=== PATIENT | male | born 1965 | race Caucasian/White ===

== ENCOUNTER 2019-12-22 08:32 | Emergency (ER) | payer OTHER, SELFPAY ==
--- NOTE | ~2019-12-22 | CT_ITS ---
EXAMINATION: CT abdomen pelvis w con DATE: 12/22/2019 09:33 INDICATION: Abdominal pain and diarrhea. TECHNIQUE: Computed tomography (CT) of the abdomen and pelvis was performed with 100 cc Omnipaque 350 intravenous contrast. The dose-length product was 1610.32 mGy-cm. Automated exposure control and ite rative reconstruction technique were employed. COMPARISON: None. FINDINGS: Lung bases are unremarkable. Heart size normal. No pleural or pericardial effusion. No sign ificant vascular abnormality. No lymphadenopathy. The liver, spleen, pancreas, adrenal glands and kidneys are unremarkable. Gallbladder is present. No abnormal pelvic masses or fluid collections. No bowel obstruction. No free air or free fluid. Mild iván mbar spondylosis. IMPRESSION: 1. No acute abdominal abnormality. Reviewed, dictated and finalized at location A.
[2019-12-22 08:36] VITALS: BP 172/86; PULSE 86; RESP 18; TEMP 36.4; O2SAT 100
--- NOTE | 2019-12-22 08:36 | PC.NURSE ---
Patient to bathroom for urine sample on way to his room.
--- NOTE | 2019-12-22 08:38 | ED.ABDPAIN ---
HPI - Abdominal Pain General Chief Complaint: Abdominal Pain Stated Complaint: stomach is killing me Time Seen by Provider: 12/22/19 08:34 Source: patient Mode of arrival: ambulatory Limitations: no limitations History of Present Illness HPI narrative: Pt is a 54 y/o male who presents to the ED with c/o intermittent lower ABD pain that radiates to his lower back since afternoon (4 days ago). Pt reports nausea and diarrhea, but denies vomiting or a fever. He took Tylenol this morning for pain. Pt states that he was treated for IBS about 22 years ago. MD elicited complaint: abdominal pain Pertinent past history: other (IBS) Onset (ago): day(s) (4) Pain Consistency: intermittent Location: other (lower ABD) Radiation: back (lower) Relieving factors: nothing Associated symptoms: nausea and diarrhea Treatments prior to arrival: other (Tylenol) Related Data Home Medications Medication Instructions Recorded Confirmed blood sugar diagnostic #10 each 10/20/19 blood-glucose meter #1 each 10/20/19 dicyclomine 10 mg capsule 10 mg PO QID 10/20/19 exenatide microspheres 2 mg/0.65 2 mg SUB-Q Q7D 10/20/19 mL subcutaneous pen injector trazodone 50 mg tablet 100 mg PO QPM tablet 10/20/19 Allergies Allergy/AdvReac Type Severity Reaction Status Date / Time No Known Allergies Allergy Mild Unverified 04/05/04 08:49 acetaminophen Allergy Unknown NAUSEA/VOMI Unverified 01/27/09 15:25 TING propoxyphene Allergy Unknown NAUSEA/VOMI Unverified 01/27/09 15:25 TING Review of Systems Review of Systems: All systems reviewed & are unremarkable except as noted in HPI and below Constitutional: Constitutional: Denies fever(s) Gastrointestinal: Gastrointestinal: Reports abdominal pain, Reports diarrhea, Reports nausea and Denies vomiting Musculoskeletal: Musculoskeletal: Reports back pain PMFSH Past Medical History Medical History (Updated 12/22/19 @ 11:46 by Agustin Faith DO) Anxiety Depression Diabetes mellitus High cholesterol HTN (hypertension) IBS (irritable bowel syndrome) Left lateral epicondylitis Trigeminal neuralgia Surgical History Surgical History (Updated 12/22/19 @ 08:45 by Lucia Galloway) History of bilateral carpal tunnel release Hx of tonsillectomy Family History Family History (Updated 03/25/18 @ 16:29 by DOCTOR UNKNOWN) Grandparent Diabetes mellitus Family history of cardiovascular disease Family history of malignant neoplasm of breast in first degree relative Sibling Diabetes mellitus Mother Family history of malignant neoplasm of brain Social History Social History Smoking status: Former smoker Second hand tobacco smoke exposure: No Smoking end date: 10/15/17 Alcohol intake: never Gender identity (if verbalized by the patient): Male Exam Narrative: Exam Narrative: APPEARANCE: No acute distress, nontoxic, resting in bed EYES: EOMI HEENT: Normocephalic, atraumatic, OMM RESPIRATORY: No respiratory distress Clear to auscultation bilaterally with no rhonchi wheezing or rales. CARDIOVASCULAR: Regular rate and rhythm without murmurs rubs or gallops. ABDOMINAL: Obese, soft, nondistended, diffusely tender to palpation, no rebound or guarding Back: No midline thoracic or lumbar tenderness to palpation MUSCULOSKELETAl: Moves all extremities. No clubbing, cyanosis or edema. NEURO: Awake and alert. Following commands, speech normal, no focal deficits SKIN:: Warm, dry. No rashes lesions or abrasions PSYCHIATRIC: Normal affect/mood, Course Course Emergency Course: Patient states that one time he had been on belladonna for his IBS but is been switched to Bentyl. Patient states that they are feeling much better at this time. States abdominal pain has resolved. Repeat abdominal exam shows the patient's abdomen to be soft and nontender. Discussed with patient results of workup and diagnosis. Discussed need for follow
[2019-12-22 08:56] LABS: Basophils Percent Auto 0.4 % (0.2-1.2); Eosinophils Absolute Auto 0.1 K/mm3 (0-0.3); Eosinophils Percent Auto 1.2 % (0-4.4); Hematocrit 41.6 % (42.0-52.0); Hemoglobin 12.7 g/dL (14.0-18.0); Immature Granulocyte Absolute 0.07 K/mm3 (0.00-0.031); Immature Granulocyte Percent A 0.7 % (0-0.5); Lymphocytes Absolute Auto 1.86 K/mm3 (0.9-3.2); Lymphocytes Percent Auto 18.9 % (18.3-44.2); Mean Corpuscular HGB Conc 30.5 g/dl (32-36); Mean Corpuscular Volume 81.9 fl (80-100); Mean Platelet Volume 9.8 fl (7.4-10.4); Monocytes Absolute Auto 0.6 K/mm3 (0.1-0.6); Monocytes Percent Auto 5.6 % (2.6-8.5); Neutrophils Absolute Auto 7.2 K/mm3 (1.3-6.7); Neutrophils Percent Auto 73.2 % (45.5-73.1); Platelet Count Result 266 k/mm3 (150-375); Red Blood Count 5.08 M/mm3 (4.6-6.20); White Blood Count 9.9 K/mm3 (4.5-10.0)
[2019-12-22 09:00] LABS: Add Urine Microscopic? YES; Appearance Urine Clear (Clear); Bilirubin Urine Negative (Negative); Blood Urine Negative (Negative); Color Urine Yellow (Yellow); Glucose Urine UA Negative (Negative); Ketones Urine Negative (Negative); Leukocyte Esterase Ur Negative LEU/UL (Negative); Mucus Urine Heavy /lpf; Nitrate Urine Negative (Negative); Protein Urine 1+ mg/dL (Negative); RBC Urine 0-2 /hpf (0-2); Squamous Epithelial Cell Urine Moderate /hpf (Few); Urobilinogen Urine Negative mg/dL (<2.0); WBC Urine 0-3 /hpf
[2019-12-22 09:10] LABS: Alanine Aminotransferase 29 U/L (4-50); Albumin Level 4.3 g/dL (3.5-5.1); Alkaline Phosphatase 139 U/L (38-126); Aspartate Amino Transferase 22 U/L (17-59); Bilirubin,Total 0.3 mg/dL (0.2-1.3); Blood Urea Nitrogen 9 mg/dL (9-20); Carbon Dioxide 30 mmol/L (22-30); Chloride 99 mmol/L (98-107); Estimated CRCL calculation 169 ml/min; Estimated Glomerular Filt Rate > 60; Glucose 119 mg/dL (75-110); Lipase 69 U/L (23-300); Potassium 4.5 mmol/L (3.4-5.0); Sodium 138 mmol/L (137-145)
[2019-12-22] MEDS: DICYCLOMINE HCL INJ 20 MG/2 ML VIAL IM (10:26)
[2019-12-22 10:30] VITALS: BP 148/78; PULSE 76; RESP 16; O2SAT 98
[2019-12-22] MEDS: BELLADONNA ALK/PHENOB ELIX 10 ML, MAG HYDROX/ALUMINUM HYD/SIMETH 30 ML, LIDOCAINE HCL 2... PO (11:26)
[2019-12-22 12:45] VITALS: BP 167/66; PULSE 73; RESP 16; O2SAT 96
== END 2019-12-22 12:45 | disposition home or self-care (01) ==
PROVIDERS: Emergency Provider Emergency Medicine; PCP Family Medicine
DX: R10.30 Lower abdominal pain, unspecified (principal); F41.9 Anxiety disorder, unspecified; F32.9 Major depressive disorder, single episode, unspecified; K58.9 Irritable bowel syndrome, unspecified; E11.9 Type 2 diabetes mellitus without complications; E78.00 Pure hypercholesterolemia, unspecified; Z79.84 Long term (current) use of oral hypoglycemic drugs
CPT/HCPCS: 36415; 74177; 80053; 81001; 83690; 85025; 96372; 99284; A9270; J0500; Q9967

== ENCOUNTER 2020-07-07 07:42 | Emergency (ER) | payer OTHER, SELFPAY ==
--- NOTE | ~2020-07-07 | CT_ITS ---
EXAMINATION: CT abdomen pelvis w con DATE: 07/07/2020 09:25 INDICATION: Abdominal pain. Vomiting. TECHNIQUE: Computed tomography (CT) of the abdomen and pelvis was performed with 100 mL Omnipaque 350 intravenous contrast. Automated exposure control and iterative reconstruction technique were employe d. The dose-length product was 3175.78 mGy-cm. COMPARISON: CT abdomen and pelvis 12/22/2019 FINDINGS: The visualized portions of the lung bases demonstrate mild atelectasis. No pleural effusion . The heart size is normal. There are coronary artery calcifications. No pericardial effusion. The li ferny and gallbladder are normal. There is mild splenomegaly, likely secondary to obesity. The pancreas and adrenal glands are normal. There are cysts in the kidneys measuring up to 1.8 cm on the left. Th ere are no dilated loops of bowel. The appendix is normal. There are no pathologically enlarged lymph nodes. There is no free intraperitoneal fluid. There is a lipoma in the left iliopsoas muscle. There is severe lumbar spondylosis. IMPRESSION: 1. No etiology for the patient's symptoms. Reviewed, dictated and finalized at location A.
[2020-07-07 08:00] VITALS: BP 160/65; PULSE 82; RESP 16; TEMP 36.1; O2SAT 99
--- NOTE | 2020-07-07 08:18 | ED.ABDPAIN ---
HPI - Abdominal Pain General Chief Complaint: Abdominal Pain Stated Complaint: abd pain Time Seen by Provider: 07/07/20 08:18 Source: patient Mode of arrival: ambulatory Limitations: no limitations History of Present Illness HPI narrative: Patient is a 55-year-old male with a history of irritable bowel syndrome who presents for evaluation of abdominal pain. Pain is constant in nature, cramping and sharp in nature located over the center of the abdomen that awakened him from sleep at 2 in the morning. He denies associated fever, cough or shortness of breath. No chest pain. No ripping or tearing sensation of the pain to the flanks. Patient did not try any pain medication at home. He reports some loose stools, mild amount of mucus and blood present. No dark or tarry stools. Patient follows with Dr. Lozada. Related Data Home Medications Medication Instructions Recorded Confirmed blood sugar diagnostic #10 each 10/20/19 06/17/20 blood-glucose meter #1 each 10/20/19 06/17/20 trazodone 50 mg tablet 100 mg PO QPM tablet 10/20/19 06/17/20 carbamazepine 400 mg PO DAILY 07/07/20 [id number]-dim-HH-lycopen-lutein 1 tablet PO DAILY 07/07/20 [Men 50 Plus Multivitamin] Allergies Allergy/AdvReac Type Severity Reaction Status Date / Time propoxyphene AdvReac Unknown NAUSEA/VOMI Verified 07/07/20 08:22 TING Review of Systems Review of Systems: Narrative: CONSTITUTIONAL: Denies fever, chills, or sweats. CARDIOVASCULAR: Denies chest pain, palpitations, or edema. RESPIRATORY: Denies cough or dyspnea. GASTROINTESTINAL: Reports abdominal pain, loose stools, denies vomiting GENITOURINARY: Denies dysuria or hematuria. SKIN: Denies rash or itching. MUSCULOSKELETAL: Denies back pain, joint pain, or myalgia. NEUROLOGIC: Denies headache, numbness, or weakness. [facility] Past Medical History Medical History Anxiety Colon cancer screening Depression Diabetes mellitus Encounter for wellness examination GERD (gastroesophageal reflux disease) High cholesterol HTN (hypertension) Hyperlipidemia IBS (irritable bowel syndrome) Left lateral epicondylitis Morbid obesity with BMI of 45.0-49.9, adult Primary hypertension Prostate cancer screening Trigeminal neuralgia Surgical History Surgical History History of bilateral carpal tunnel release Hx of tonsillectomy Social History Social History Smoking status: Former smoker (Quit 2 years ago) Second hand tobacco smoke exposure: No Smoking end date: 03/18/18 Alcohol intake: never Gender identity (if verbalized by the patient): Male Exam Narrative: Exam Narrative: GENERAL: Awake, alert, conversant HEAD: Normocephalic, atraumatic. EYES: PERRLA and EOMI. ENT: Nares clear, no rhinorrhea or epistaxis. Mucous membranes moist. NECK: Supple. CHEST: No respiratory distress, breathing even and non labored HEART: Regular rate, sinus rhythm ABDOMEN: Obese, periumbilical abdominal pain, nonrigid, no rebound, no guarding EXTREMITIES: Normal range of motion. No edema. SKIN: Warm, dry, no rash. NEURO:No focal deficits. Alert and oriented x3 Course Vital Signs Vital signs: Vital Signs Temperature 36.1 C L 07/07/20 08:00 Pulse Rate 82 07/07/20 08:00 Respiratory Rate 16 07/07/20 08:00 Blood Pressure 160/65 H 07/07/20 08:00 Pulse Oximetry 99 07/07/20 08:00 Temperature 36.1 C L 07/07/20 08:00 Pulse Rate 82 07/07/20 08:00 Respiratory Rate 16 07/07/20 08:00 Blood Pressure 160/65 H 07/07/20 08:00 Pulse Oximetry 99 07/07/20 08:00 MDM - Abdominal Pain MDM Narrative Medical decision making narrative: Patient's abdomen is soft without significant pain or signs of surgical abdomen on serial exams. Lab and imaging evaluations are reviewed and patient is felt to be a reasonable candidate for outp
[2020-07-07 08:48] LABS: Basophils Absolute Auto 0.1 K/mm3 (0.0-0.1); Basophils Percent Auto 0.5 % (0.2-1.2); Eosinophils Absolute Auto 0.1 K/mm3 (0-0.3); Eosinophils Percent Auto 0.7 % (0-4.4); Hematocrit 40.8 % (42.0-52.0); Immature Granulocyte Absolute 0.15 K/mm3 (0.00-0.031); Immature Granulocyte Percent A 1.2 % (0-0.5); Lymphocytes Absolute Auto 2.38 K/mm3 (0.9-3.2); Lymphocytes Percent Auto 18.4 % (18.3-44.2); Mean Corpuscular HGB Conc 31.9 g/dl (32-36); Mean Corpuscular Volume 78.5 fl (80-100); Mean Platelet Volume 9.5 fl (7.4-10.4); Monocytes Absolute Auto 0.6 K/mm3 (0.1-0.6); Neutrophils Absolute Auto 9.6 K/mm3 (1.3-6.7); Neutrophils Percent Auto 74.2 % (45.5-73.1); Platelet Count Result 348 k/mm3 (150-375); Red Cell Distribution Width 15.6 % (11.5-14.5); White Blood Count 12.9 K/mm3 (4.5-10.0)
[2020-07-07] MEDS: SODIUM CHLORIDE 0.9% IV 1,000 ML 999 ML IV CONT (08:50)
[2020-07-07 08:51] LABS: Add Urine Microscopic? NO; Appearance Urine Clear (Clear); Bilirubin Urine Negative (Negative); Blood Urine Negative (Negative); Color Urine Straw (Yellow); Glucose Urine UA Negative (Negative); Ketones Urine Negative (Negative); Leukocyte Esterase Ur Negative LEU/UL (Negative); Nitrate Urine Negative (Negative); Protein Urine Negative (Negative); Specific Grav Ur 1.011 (1.001-1.035); Urobilinogen Urine Negative mg/dL (<2.0)
[2020-07-07] MEDS: ONDANSETRON INJ 4 MG/2 ML VIAL IV PUSH (08:53)
[2020-07-07] MEDS: MORPHINE SULFATE (*CRX) 4 MG/ML INJ IV PUSH (08:53)
[2020-07-07 09:01] LABS: Alanine Aminotransferase 47 U/L (4-50); Albumin Level 4.3 g/dL (3.5-5.1); Alkaline Phosphatase 137 U/L (38-126); Anion Gap 8 mmol/L (8-16); Aspartate Amino Transferase 25 U/L (17-59); Bilirubin,Total 0.3 mg/dL (0.2-1.3); Blood Urea Nitrogen 11 mg/dL (9-20); Calcium 9.7 mg/dL (8.4-10.2); Carbon Dioxide 30 mmol/L (22-30); Chloride 99 mmol/L (98-107); Estimated CRCL calculation 159 ml/min; Estimated Glomerular Filt Rate > 60; Glucose 137 mg/dL (75-110); Lipase 86 U/L (23-300); Potassium 4.2 mmol/L (3.4-5.0); Sodium 137 mmol/L (137-145)
[2020-07-07] MEDS: BELLADONNA ALK/PHENOB ELIX 10 ML, MAG HYDROX/ALUMINUM HYD/SIMETH 30 ML, LIDOCAINE HCL 2... PO (10:35)
[2020-07-07 10:45] VITALS: BP 167/90; PULSE 70; RESP 16; O2SAT 96
== END 2020-07-07 10:45 | disposition home or self-care (01) ==
PROVIDERS: Emergency Provider Emergency Medicine; PCP Family Medicine
DX: R10.84 Generalized abdominal pain (principal); F41.9 Anxiety disorder, unspecified; F32.9 Major depressive disorder, single episode, unspecified; E11.9 Type 2 diabetes mellitus without complications; K21.9 Gastro-esophageal reflux disease without esophagitis; I10 Essential (primary) hypertension; E78.5 Hyperlipidemia, unspecified
CPT/HCPCS: 36415; 74177; 80053; 81003; 83690; 85025; 96361; 96374; 96375; 99284; A9270; J2270; J2405; J7030; Q9967

== ENCOUNTER 2020-08-31 02:16 | Outpatient (CLI) | payer OTHER, SELFPAY ==
[2020-08-31 19:46] LABS: SARS-CoV-2 RNA PCR Negative
== END 2020-08-31 02:17 | disposition home or self-care (01) ==
LOC: ANHCOVIDDT 02:16
PROVIDERS: PCP Family Medicine; Visit Provider Internal Medicine Gastroenterology
DX: Z01.818 Encounter for other preprocedural examination (principal); Z20.828 Contact with and (suspected) exposure to other viral communicable diseases
CPT/HCPCS: 87635; C9803; U0003

== ENCOUNTER 2020-09-03 00:35 | Day surgery (SDC) | payer OTHER, SELFPAY ==
[2020-08-27 14:58] VITALS: BMI 46.3
[2020-09-03 06:21] VITALS: BP 140/66; PULSE 89; RESP 18; O2SAT 96
[2020-09-03] MEDS: LACTATED RINGERS 1,000 ML 150 ML IV CONT (06:42)
[2020-09-03 06:45] LABS: Glucose Point of Care 138 (65-105)
--- NOTE | 2020-09-03 07:20 | WPDANESEPPF ---
Anes - Initial Pre Proc Eval Procedure: Operation Date: 09/03/20 07:30 Proposed Procedures p Esophagogastroduodenoscopy&Screen Colon - Ryan Barton MD Date/Time: 09/03/20 07:20 Surgeon: Ryan Barton MD Pre Op Diagnosis: neoplasm screening , nausea Patient Data Age: 55 Gender: M Height: 6 ft Weight: 155 kg Last Vital Signs Pulse 89 09/03/20 06:21 Resp 18 09/03/20 06:21 BP 140/66 09/03/20 06:21 Pulse Ox 96 09/03/20 06:21 Allergies Allergy/AdvReac Type Severity Reaction Status Date / Time propoxyphene AdvReac Unknown NAUSEA/VOMI Verified 09/03/20 06:19 TING Home Medications Medication Instructions Recorded Confirmed Type blood sugar diagnostic #10 each 10/20/19 07/08/20 History blood-glucose meter #1 each 10/20/19 07/08/20 History trazodone 50 mg tablet 100 mg PO QPM PRN tablet 10/20/19 08/27/20 History rosuvastatin 40 mg tablet 40 mg PO DAILY #90 tablet 11/06/19 08/27/20 Rx famotidine [Pepcid] 20 mg PO DAILY #14 tablet 12/22/19 08/27/20 Rx dicyclomine 10 mg capsule 10 mg PO QID #360 cap 03/25/20 08/27/20 Rx hydrochlorothiazide 25 mg tablet 25 mg PO DAILY #90 tablet 05/04/20 08/27/20 Rx carbamazepine 400 mg PO DAILY 07/07/20 08/27/20 History fnjscqmx-dvo-RP-lycopen-lutein 1 tablet PO DAILY 07/07/20 08/27/20 History [Men 50 Plus Multivitamin] oxycodone-acetaminophen 1 tablet PO Q6H PRN #14 tablet 07/07/20 08/27/20 Rx valsartan 160 mg tablet 160 mg PO DAILY #90 tablet 07/19/20 08/27/20 Rx exenatide microspheres 2 mg/0.65 2 mg SUB-Q Q7D #4 each 07/26/20 08/27/20 Rx mL subcutaneous pen injector albuterol sulfate 90 mcg/actuation See Rx Instructions .ROUTE 08/06/20 08/27/20 Rx breath activated powder inhaler .COMPLEX #1 ea metformin 500 mg tablet,extended 2,000 mg PO QPM #360 tablet 08/26/20 08/27/20 Rx release 24 hr amlodipine 10 mg tablet 10 mg PO DAILY #90 tablet 08/27/20 08/27/20 Rx Laboratory Tests 09/03/20 06:35 POC Capillary Glucose 138 mg/dl H mg/dl (65-105) Patient hx anesthesia problems: post op nausea/vomiting Family hx anesthesia problems: none PMFSH Past Medical History Medical History Abdominal pain Anxiety Colon cancer screening Depression Diabetes mellitus Encounter for wellness examination GERD (gastroesophageal reflux disease) High cholesterol HTN (hypertension) Hyperlipidemia IBS (irritable bowel syndrome) Left lateral epicondylitis Loose stools Morbid obesity with BMI of 45.0-49.9, adult Nausea Obesity Primary hypertension Prostate cancer screening Trigeminal neuralgia Surgical History Surgical History History of bilateral carpal tunnel release Hx of tonsillectomy Family History Family History Grandparent Diabetes mellitus Family history of cardiovascular disease Family history of malignant neoplasm of breast in first degree relative Sibling Diabetes mellitus Mother Family history of malignant neoplasm of brain Social History Social History Smoking packs per day: 2 Smoking cigarettes per day: 40.0 Years smoked: 20 Smoking pack-years: 40.00 Smoking status: Former smoker Tobacco type: cigarettes Second hand tobacco smoke exposure: No Smoking end date: 03/18/18 Alcohol intake: current Substance use: never Substance use type: does not use Gender identity (if verbalized by the patient): Male Spiritual care concerns: No Anes - Eval Final PreProcedure Day of Procedure 09/03/20 07:20 Patient weight: morbidly obese Heart: regular rate and rhythm Lungs: decreased breath sounds Airway: Mallampati scale class II Neurological: alert and oriented Last oral intake: >/= 8 hours ASA classification: III Emergent: no Anesthetic plan: pro
[2020-09-03] MEDS: ONDANSETRON INJ 4 MG/2 ML VIAL IV PUSH (07:22)
--- NOTE | 2020-09-03 07:32 | PM.HPGS ---
History of Present Illness History of Present Illness Consent: Risks, benefits, and alternatives have been discussed and questions answered. Patient agrees to proceed with procedure. Chief complaint: neoplasm screening , nausea Narrative: Doron Khalil is a 55 year old male with abdominal pain, nausea and loose stools. Tried viberzi but made him constipated Review of Systems Constitutional: Constitutional: Denies headache(s) and Denies weakness Eyes: Eyes: Denies blurry vision ENT: Reports Normal hearing present, Denies headache(s) and Denies neck pain Cardiovascular: Cardiovascular: Denies chest pain and Denies dyspnea Respiratory: Respiratory: Denies dyspnea Gastrointestinal: Gastrointestinal: Reports no additional gastrointestinal complaints Genitourinary: Genitourinary: Denies dysuria Musculoskeletal: Musculoskeletal: Denies neck pain Integumentary/Breasts: Skin/Breast: Denies dry skin Neurologic: Reports Normal hearing present, Denies headache(s) and Denies weakness Psychiatric: Psychiatric: Denies anxiety Endocrine: Endocrine: Denies change in body appearance Hematologic/Lymphatic: Hematologic/Lymphatic: Denies easy bleeding Allergic/Immunologic: Allergic/Immunologic: Denies urticaria PMFSH Past Medical History Medical History Abdominal pain Anxiety Colon cancer screening Depression Diabetes mellitus Encounter for wellness examination GERD (gastroesophageal reflux disease) High cholesterol HTN (hypertension) Hyperlipidemia IBS (irritable bowel syndrome) Left lateral epicondylitis Loose stools Morbid obesity with BMI of 45.0-49.9, adult Nausea Obesity Primary hypertension Prostate cancer screening Trigeminal neuralgia Surgical History Surgical History History of bilateral carpal tunnel release Hx of tonsillectomy Family History Family History Grandparent Diabetes mellitus Family history of cardiovascular disease Family history of malignant neoplasm of breast in first degree relative Sibling Diabetes mellitus Mother Family history of malignant neoplasm of brain Social History Social History Smoking packs per day: 2 Smoking cigarettes per day: 40.0 Years smoked: 20 Smoking pack-years: 40.00 Smoking status: Former smoker Tobacco type: cigarettes Second hand tobacco smoke exposure: No Smoking end date: 03/18/18 Alcohol intake: current Substance use: never Substance use type: does not use Gender identity (if verbalized by the patient): Male Spiritual care concerns: No Meds Home Medications and Allergies Home Medications Medication Instructions Recorded Confirmed Type blood sugar diagnostic #10 each 10/20/19 07/08/20 History blood-glucose meter #1 each 10/20/19 07/08/20 History trazodone 50 mg tablet 100 mg PO QPM PRN tablet 10/20/19 08/27/20 History rosuvastatin 40 mg tablet 40 mg PO DAILY #90 tablet 11/06/19 08/27/20 Rx famotidine [Pepcid] 20 mg PO DAILY #14 tablet 12/22/19 08/27/20 Rx dicyclomine 10 mg capsule 10 mg PO QID #360 cap 03/25/20 08/27/20 Rx hydrochlorothiazide 25 mg tablet 25 mg PO DAILY #90 tablet 05/04/20 08/27/20 Rx carbamazepine 400 mg PO DAILY 07/07/20 08/27/20 History gxsvugab-qmu-NG-lycopen-lutein 1 tablet PO DAILY 07/07/20 08/27/20 History [Men 50 Plus Multivitamin] oxycodone-acetaminophen 1 tablet PO Q6H PRN #14 tablet 07/07/20 08/27/20 Rx valsartan 160 mg tablet 160 mg PO DAILY #90 tablet 07/19/20 08/27/20 Rx exenatide microspheres 2 mg/0.65 2 mg SUB-Q Q7D #4 each 07/26/20 08/27/20 Rx mL subcutaneous pen injector albuterol sulfate 90 mcg/actuation See Rx Instructions .ROUTE 08/06/20 08/27/20 Rx breath activated powder inhaler .COMPLEX #1 ea metformin 500 mg tablet,extended 2,000 mg PO QPM
[2020-09-03] MEDS: BENZOCAINE (*SP) 60 ML SPRAY CAN (HURRICAINE) 1 SPRAY MUCOUS MEM (07:35)
[2020-09-03 08:05] VITALS: BP 92/53; PULSE 80; RESP 19; O2SAT 95
[2020-09-03 08:15] VITALS: BP 108/44; PULSE 80; RESP 18; O2SAT 95
[2020-09-03 08:25] VITALS: BP 112/54; PULSE 79; RESP 12; O2SAT 92
== END 2020-09-03 08:29 | disposition home or self-care (01) ==
PROVIDERS: PCP Family Medicine; Visit Provider Internal Medicine Gastroenterology
PROC: 0DJ08ZZ Inspection of Upper Intestinal Tract, Via Natural or Artificial Opening Endoscopic (ICD-10-PCS; CPT 43235; principal; 2020-09-03 07:30)
DX: Z12.11 Encounter for screening for malignant neoplasm of colon (principal); K21.9 Gastro-esophageal reflux disease without esophagitis; E11.9 Type 2 diabetes mellitus without complications; I10 Essential (primary) hypertension; F41.8 Other specified anxiety disorders; E78.00 Pure hypercholesterolemia, unspecified; E78.5 Hyperlipidemia, unspecified; K58.9 Irritable bowel syndrome, unspecified; G50.0 Trigeminal neuralgia; Z79.84 Long term (current) use of oral hypoglycemic drugs; E66.01 Morbid (severe) obesity due to excess calories; Z68.42 Body mass index [BMI] 45.0-49.9, adult; Z87.891 Personal history of nicotine dependence
CPT/HCPCS: 45380; 43239; 88305; J2405; J2704; J7120

== ENCOUNTER → 2021-04-22 16:12 | Outpatient (CLI) | payer OTHER, SELFPAY ==
--- NOTE | ~2021-04-22 | XR_ITS ---
XR lumbar spine min 4V 04/22/2021 16:36 Indication: Low back pain and radiculopathy Procedure: 5 views lumbar spine Comparison: No prior studies for comparison. Findings: There is mild disc narrowing at L4-5 and L5-S1. There are facet degenerative changes at the se levels. No fracture, subluxation or dislocation. No evidence for spondylolisthesis. Normal anatomi c alignment. Sacral foramen are symmetric. Impression: 1: Moderate lower lumbar spondylosis. Reviewed, dictated and finalized at location A. Impression: 1: Moderate lower lumbar spondylosis.
== END ==
PROVIDERS: PCP Family Medicine; Visit Provider Physician Assistant
DX: M47.816 Spondylosis without myelopathy or radiculopathy, lumbar region (principal)
CPT/HCPCS: 72110

== ENCOUNTER 2021-06-06 07:55 | Emergency (ER) | payer OTHER, SELFPAY ==
[2021-06-06 08:37] VITALS: BP 161/70; PULSE 80; RESP 16; TEMP 36.8; O2SAT 98
--- NOTE | 2021-06-06 09:29 | ED.GENADULT ---
HPI - General Adult General Chief complaint: Eye Problems Stated complaint: Swolled eye lids Time Seen by Provider: 06/06/21 08:02 Source: patient Mode of arrival: ambulatory Limitations: no limitations History of Present Illness HPI narrative: 56-year-old with a history of hypertension, hyperlipidemia, diabetes here with complaints of bilateral eyelid swelling since last 2 days. Patient states he has been outside for past few days. Complains of minor itching. Denies any blurred vision. Onset (ago): day(s) (2) Location: eyes (Eyelids) Severity: mild Quality: other (Itching) Pain Consistency: constant Exacerbating factors: none Associated symptoms: denies other symptoms Related Data Home Medications Medication Instructions Recorded Confirmed blood sugar diagnostic #10 each 10/20/19 12/20/20 vjstbvfe-nzp-AG-lycopen-lutein 1 tablet PO DAILY 07/07/20 12/20/20 [Men 50 Plus Multivitamin] Allergies Allergy/AdvReac Type Severity Reaction Status Date / Time propoxyphene AdvReac Unknown NAUSEA/VOMI Verified 04/15/21 16:01 TING Review of Systems Review of Systems: All systems reviewed & are unremarkable except as noted in HPI and below Constitutional: Constitutional: Reports no additional constitutional complaints Eyes: Eyes: Reports as per HPI Respiratory: Respiratory: Reports no additional respiratory complaints Gastrointestinal: Gastrointestinal: Reports no additional gastrointestinal complaints Musculoskeletal: Musculoskeletal: Reports no additional musculoskeletal complaints Integumentary/Breasts: Skin/Breast: Reports system reviewed and no additional complaints, except as docu Neurologic: Reports system reviewed and no additional complaints, except as documented [facility] Past Medical History Medical History Abdominal pain Anxiety Colon cancer screening Depression Diabetes mellitus Encounter for wellness examination GERD (gastroesophageal reflux disease) High cholesterol HTN (hypertension) Hyperlipidemia IBS (irritable bowel syndrome) Irritable bowel syndrome with diarrhea Left lateral epicondylitis Loose stools Morbid obesity with BMI of 45.0-49.9, adult Nausea Obesity Primary hypertension Prostate cancer screening Trigeminal neuralgia Surgical History Surgical History History of bilateral carpal tunnel release Hx of tonsillectomy Family History Family History Grandparent Diabetes mellitus Family history of cardiovascular disease Family history of malignant neoplasm of breast in first degree relative Sibling Diabetes mellitus Mother Family history of malignant neoplasm of brain Social History Social History (Updated 04/15/21 @ 16:07 by Shanelle Blue [facility]) Smoking packs per day: 2 Smoking cigarettes per day: 40.0 Years smoked: 20 Smoking pack-years: 40.00 Smoking status: Former smoker Tobacco type: cigarettes Second hand tobacco smoke exposure: No Smoking end date: 03/18/18 Alcohol intake: never Substance use: never Substance use type: does not use Gender identity (if verbalized by the patient): Male Spiritual care concerns: No Exam HENMT: Head: normal to inspection Eyes: Conjunctivae: conjunctivae normal Pupils: Equal, round and reactive pupils present Neck: Neck: normal visual inspection Chest: Chest palpation & inspection: normal inspection of the chest Back/Spine/Pelvis: Back: no CVA tenderness Skin: General skin exam: normal color Course Course Emergency Course: Inform patient about his clinical findings at this time it appears to be more allergies, there is no evidence of blepharitis start him on prednisone 10 mg daily for 5 days and advised him to follow-up with his primary doctor. Vital Signs Vital signs: Vital Signs Temperature 36.8 C 06/06/21 08:37 Pul
== END 2021-06-06 10:20 | disposition home or self-care (01) ==
PROVIDERS: Emergency Provider Family Medicine; PCP Family Medicine
DX: H01.003 Unspecified blepharitis right eye, unspecified eyelid (principal); E11.9 Type 2 diabetes mellitus without complications; K21.9 Gastro-esophageal reflux disease without esophagitis; I10 Essential (primary) hypertension; K58.9 Irritable bowel syndrome, unspecified; E78.5 Hyperlipidemia, unspecified; E66.01 Morbid (severe) obesity due to excess calories; Z68.41 Body mass index [BMI] 40.0-44.9, adult; Z87.891 Personal history of nicotine dependence; Z79.84 Long term (current) use of oral hypoglycemic drugs
CPT/HCPCS: 99283

== ENCOUNTER 2022-08-23 12:55 | Emergency (ER) | payer OTHER, BC, SELFPAY ==
--- NOTE | ~2022-08-23 | CT_ITS ---
EXAMINATION: CT soft tissue neck w con DATE: 08/23/2022 17:24 INDICATION: Salivary stone. TECHNIQUE: Computed tomography (CT) of the neck was performed with 75 mL Omnipaque-350 intravenous co ntrast. The dose-length product was 671.11 mGy-cm. COMPARISON: None FINDINGS: The thyroid gland is unremarkable. The submandibular and parotid glands are symmetric, without fatt y atrophy. Several right-sided sublingual (submandibular duct) calcifications, measuring up to 9 x 12 cm, with mild soft tissue asymmetry and mild stranding in the sublingual fat planes. There is no cer vical lymphadenopathy. There are no masses identified. The superior mediastinum is unremarkable. The airway is unremarkable. Parapharyngeal and pre-glottic fat planes are preserved. Mild arch and carotid bifurcation atherosclerotic plaques. The orbits are unremarkable. Retention cyst or po lyp in the right maxillary sinus, otherwise the remaining aerated spaces are clear. Dependent atele ctasis and motion artifact in the lungs. There is mild cervical spondylosis. IMPRESSION: Large right submandibular sialoliths, with CT findings suggestive of mild right sialadenitis. Reviewed, dictated and finalized at location K. [employer]
[2022-08-23 13:37] VITALS: BP 143/70; PULSE 81; RESP 14; TEMP 37.1; O2SAT 97
--- NOTE | 2022-08-23 16:12 | ED.GENADULT ---
HPI - General Adult General Chief complaint: Unspecified Stated complaint: salivary duct stone pain Time Seen by Provider: 08/23/22 15:31 History of Present Illness HPI narrative: 57-year-old male history of salivary gland stones presents to the emergency room complaining of a obstructed salivary gland stone on the right side. Patient states he was seen that in the ENT yesterday and was told that he would need to have his salivary gland surgically removed. Was also encouraged to come to the emergency room to have a CT scan. Patient is requesting to have his salivary gland surgically removed today. Related Data Home Medications Medication Instructions Recorded Confirmed vvptsfyy-etg-qmpja acid 300 1 tablet PO DAILY 07/07/20 08/14/22 mcg-lycopene 600 mcg-lutein 300 mcg tablet (Men 50 Plus Multivitamin) ferrous sulfate 325 mg (65 mg 325 mg PO DAILY 10/12/21 08/14/22 iron) tablet (FeroSul) tizanidine 4 mg capsule 4 mg PO QHS PRN 04/21/22 08/14/22 Allergies Allergy/AdvReac Type Severity Reaction Status Date / Time propoxyphene AdvReac Unknown NAUSEA/VOMI Verified 08/23/22 15:29 TING Review of Systems Review of Systems: CONSTITUTIONAL: Denies fever, chills, or sweats. EYES: Denies visual changes, redness, or discharge. ENT: Reports mouth pain CARDIOVASCULAR: Denies chest pain, palpitations, or edema. RESPIRATORY: Denies cough or dyspnea. GASTROINTESTINAL: Denies abdominal pain, nausea, vomiting, or diarrhea. GENITOURINARY: Denies dysuria or hematuria. SKIN: Denies rash or itching. MUSCULOSKELETAL: Denies back pain, joint pain, or myalgia. NEUROLOGIC: Denies headache, numbness, dizziness, or weakness. PSYCHIATRIC: Denies anxiety or depression. [facility] Past Medical History Medical History Abdominal pain Anxiety Colon cancer screening Depression Diabetes mellitus Edema Encounter for wellness examination GERD (gastroesophageal reflux disease) High cholesterol HTN (hypertension) Hyperlipidemia IBS (irritable bowel syndrome) Irritable bowel syndrome with diarrhea Left lateral epicondylitis Loose stools Morbid obesity with BMI of 45.0-49.9, adult Nausea Obesity Primary hypertension Prostate cancer screening Salivary duct calculi Trigeminal neuralgia Surgical History Surgical History History of bilateral carpal tunnel release Hx of tonsillectomy Family History Family History Grandparent Diabetes mellitus Family history of cardiovascular disease Family history of malignant neoplasm of breast in first degree relative Sibling Diabetes mellitus Mother Family history of malignant neoplasm of brain Social History Social History Smoking packs per day: 2 Smoking cigarettes per day: 40.0 Years smoked: 20 Smoking pack-years: 40.00 Smoking status: Former smoker Tobacco type: cigarettes Second hand tobacco smoke exposure: No Smoking end date: 03/18/18 Alcohol intake: never Substance use: current Other substance usage details: CBD gummies PRN for pain Lack of Transportation: No Lack of Food: Never True Current Housing: I Have Housing Concerned About Future Housing: No Difficulty Paying Gas/Electric Bills: No Difficulty Paying for Meds: No Currently Unemployed: No Difficulty w/ Childcare or Family Care: No Gender identity (if verbalized by the patient): Male Spiritual care concerns: No Agree to blood products: Yes Exam Narrative: GENERAL: Well-appearing, well-nourished, no physical limitations, and in no acute distress. HEAD: Normocephalic, atraumatic. EYES: Conjunctivae normal, PERRLA and EOMI. ENT: Large submandibular salivary gland on the right with scant amount of purulent material noted NECK: Supple. No adenopathy or masses
[2022-08-23] MEDS: SODIUM CHLORIDE 0.9% IV 1,000 ML 999 ML IV CONT (16:32)
[2022-08-23 16:52] LABS: Anion Gap 13 mmol/L (8-16); Blood Urea Nitrogen 12 mg/dL (9-20); Calcium 8.6 mg/dL (8.4-10.2); Carbon Dioxide 30 mmol/L (22-30); Chloride 99 mmol/L (98-107); Estimated CRCL calculation 149 ml/min; Estimated Glomerular Filt Rate > 60; Glucose 109 mg/dL (65-110); Potassium 4.4 mmol/L (3.4-5.0); Sodium 142 mmol/L (137-145)
== END 2022-08-23 18:03 | disposition home or self-care (01) ==
PROVIDERS: Emergency Provider Nurse Practitioner Family; PCP Family Medicine
DX: K11.20 Sialoadenitis, unspecified (principal); E11.9 Type 2 diabetes mellitus without complications; K21.9 Gastro-esophageal reflux disease without esophagitis; I10 Essential (primary) hypertension; E78.5 Hyperlipidemia, unspecified; K58.0 Irritable bowel syndrome with diarrhea; E66.01 Morbid (severe) obesity due to excess calories; Z68.42 Body mass index [BMI] 45.0-49.9, adult; Z87.891 Personal history of nicotine dependence
CPT/HCPCS: 36415; 70491; 80048; 96360; 99284; J7030; Q9967

== ENCOUNTER 2022-10-23 09:43 | Outpatient (CLI) | payer OTHER, BC, SELFPAY ==
--- NOTE | ~2022-10-23 | XR_ITS ---
EXAMINATION: XR hand LT min 3V INDICATION: Left hand pain TECHNIQUE: Three views of left hand are obtained. COMPARISON: None available FINDINGS: No fracture, dislocation, or subluxation. The bones and soft tissues are normal. There is m ild osteoarthritis of multiple interphalangeal joints, at the first metacarpophalangeal joint, and at the first carpometacarpal joint. IMPRESSION: 1. Mild polyarticular osteoarthritis. Reviewed, dictated and finalized at location B. [employer]
--- NOTE | ~2022-10-23 | XR_ITS ---
EXAMINATION: XR hand RT min 3V INDICATION: Right hand pain TECHNIQUE: Three views of the right hand are obtained. COMPARISON: None available FINDINGS: No fracture, dislocation, or subluxation. The bones and soft tissues are normal. There is m ild osteoarthritis of multiple interphalangeal joints, at the first metacarpophalangeal joint, and at the first carpometacarpal joint. IMPRESSION: 1. Mild polyarticular osteoarthritis. Reviewed, dictated and finalized at location B. [employer]
== END 2022-10-23 09:44 | disposition home or self-care (01) ==
PROVIDERS: PCP Family Medicine; Visit Provider Physician Assistant
DX: M19.041 Primary osteoarthritis, right hand (principal); M19.042 Primary osteoarthritis, left hand
CPT/HCPCS: 73130

== ENCOUNTER 2023-02-22 10:01 | Observation (INO) | payer OTHER, BC, SELFPAY ==
[2023-02-22] VITALS (49 sets, daily range): BP systolic 127–153; BP diastolic 56–83; PULSE 62–90; RESP 12–23; TEMP 36.1–36.8; O2SAT 92–98; BMI 43.4
--- NOTE | ~2023-02-22 | XR_ITS ---
XR chest 1V portable 02/22/2023 10:30 Indication: Chest pain. Hypertension. Diabetes. History of smoking. Procedure: AP portable chest Comparison: 11/15/2006 Findings: Borderline heart size. Mild interstitial edema. No pleural effusion or pneumothorax. Impression: 1: Mild interstitial edema. Atypical pneumonia less favored. Reviewed, dictated and finalized at location L. Impression: 1: Mild interstitial edema. Atypical pneumonia less favored.
--- NOTE | ~2023-02-22 | NM_ITS ---
EXAMINATION: NM stress w perf spect multi DATE: 02/23/2023 11:56 INDICATION: Chest pain. TECHNIQUE: Rest images were obtained following intravenous administration of 10.1 mCi Tc99m tetrofosm in (Myoview). The patient performed an exercise activity. At peak exercise, 31.2 mCi Tc99m tetrofosmi n (Myoview) was administered intravenously, and stress images were obtained. Data was reconstructed i nto short axis and horizontal and vertical long axis SPECT images. Gated SPECT images were also obtai sylvia. COMPARISON: CT abdomen and pelvis 07/07/2020 FINDINGS: There is no definite reversible or fixed perfusion abnormality to suggest ischemia or infar ction. There is no segmental wall motion abnormality. Left ventricular ejection fraction measures > 70%. IMPRESSION: 1. No definite ischemia or infarct. 2. Normal left ventricular ejection fraction measuring >70%. Reviewed, dictated and finalized at location E.
--- NOTE | ~2023-02-22 | US_ITS ---
EXAMINATION: US abdomen limited DATE: 02/22/2023 16:04 INDICATION: Chest pain. TECHNIQUE: Multiple grayscale and Doppler ultrasound images of the abdomen were obtained. COMPARISON: CT abdomen and pelvis 07/07/2020 FINDINGS: The visualized portions of the head and body of the pancreas are normal. There is diffuse h epatic steatosis. There is normal flow in main portal vein. The gallbladder is distended. No gallston es or gallbladder wall thickening. There is no sonographic Gibson sign. The common duct is normal and measures 4 mm. IMPRESSION: 1. Diffuse hepatic steatosis. 2. Gallbladder distention, which may be secondary to fasting. Reviewed, dictated and finalized at location E.
--- NOTE | 2023-02-22 10:02 | ECG_ITS ---
Measurements Intervals [place] Rate: 75 P: 59 SC: 189 QRS: 18 QRSD: 89 T: 62 QT: 367 QTc: 412 Interpretive Statements SINUS RHYTHM BASELINE ARTIFACT- I, III, AVR, AVL NORMAL ECG NO PREVIOUS ECG AVAILABLE FOR COMPARISON Electronically Signed On 02-22-2023 11:18:48 CDT by Benitez Hinton D.O.
--- NOTE | 2023-02-22 10:18 | ED.CHESTPAIN ---
HPI - Chest Pain General Chief Complaint: Chest Pain <Josi Leyva PA-C - Last Filed: 02/22/23 16:42> Stated Complaint: chest pain <Josi Leyva PA-C - Last Filed: 02/22/23 16:42> Time Seen by Provider: 02/22/23 10:04 <Josi Leyva PA-C - Last Filed: 02/22/23 16:42> Source: patient <BRANDAN Torres Last Filed: 02/22/23 16:42> Mode of arrival: EMS <BRANDAN Torres Last Filed: 02/22/23 16:42> Limitations: no limitations <Josi Leyva PA-C - Last Filed: 02/22/23 16:42> History of Present Illness HPI narrative: Patient is a 57-year-old male, with PMH of morbid obesity, DM, HTN, HLD, who presents to the ED via EMS with report of chest pain. Patient reports he was sitting at work this morning when he suddenly developed pain in his midsternal chest, radiating through to his back. Pain began around 7:30 AM and has been constant since then. EMS was then called. Patient was given 324 mg nitro spray en route to the ED. He did report slight improvement of his pain with nitro. Patient does mention he has been under increased stress with work recently. Patient reports having a headache after receiving NTG, denies any SOB, N/V, abdominal pain, BLE pain or swelling, vision changes, dizziness, lightheadedness, weakness, numbness, fevers, cough/cold sx's. <Josi Leyva PA-C - Last Filed: 02/22/23 16:42> Related Data Home Medications: Home Medications Medication Instructions Recorded Confirmed dxkqvkmx-qau-leqfq acid 300 1 tablet PO DAILY 07/07/20 08/14/22 mcg-lycopene 600 mcg-lutein 300 mcg tablet (Men 50 Plus Multivitamin) ferrous sulfate 325 mg (65 mg 325 mg PO DAILY 10/12/21 08/14/22 iron) tablet (FeroSul) tizanidine 4 mg capsule 4 mg PO QHS PRN 04/21/22 08/14/22 <Josi Leyva PA-C - Last Filed: 02/22/23 16:42> Allergies/Adverse Reactions: Allergies Allergy/AdvReac Type Severity Reaction Status Date / Time propoxyphene AdvReac Unknown NAUSEA/VOMI Verified 10/23/22 08:52 TING <Josi Leyva PA-C - Last Filed: 02/22/23 16:42> Review of Systems Review of Systems: CONSTITUTIONAL: Denies fever, chills, or sweats. EYES: Denies visual changes. ENT: Denies rhinorrhea, congestion, sore throat. CARDIOVASCULAR: See HPI. RESPIRATORY: Denies cough or dyspnea. GASTROINTESTINAL: Denies abdominal pain, nausea, vomiting. MUSCULOSKELETAL: Denies back pain, joint pain, or myalgia. NEUROLOGIC: See HPI. <Josi Leyva PA-C - Last Filed: 02/22/23 16:42> All systems reviewed & are unremarkable except as noted in HPI and below <Josi Leyva PA-C - Last Filed: 02/22/23 16:42> [facility] Past Medical History Medical History: Medical History Abdominal pain Anxiety Colon cancer screening Depression Diabetes mellitus Edema Encounter for wellness examination GERD (gastroesophageal reflux disease) High cholesterol HTN (hypertension) Hyperlipidemia IBS (irritable bowel syndrome) Irritable bowel syndrome with diarrhea Left lateral epicondylitis Loose stools Morbid obesity with BMI of 45.0-49.9, adult Nausea Obesity Primary hypertension Prostate cancer screening Salivary duct calculi Salivary gland stone Trigeminal neuralgia <Josi Leyva PA-C - Last Filed: 02/22/23 16:42> Surgical History Surgical History: Surgical History H/O carpal tunnel repair H/O colonoscopy History of bilateral carpal tunnel release History of removal of pigmented skin lesion Hx of tonsillectomy S/P cubital tunnel release <Josi Leyva PA-C - Last Filed: 02/22/23 16:42> Family History Family History: Family History Grandparent Diabetes mellitus Family history of cardiovascular dis
[2023-02-22 10:24] LABS: Basophils Percent Auto 0.4 % (0.2-1.2); Eosinophils Absolute Auto 0.1 K/mm3 (0-0.3); Eosinophils Percent Auto 1.2 % (0-4.4); Hematocrit 41.7 % (42.0-52.0); Hemoglobin 13.4 g/dL (14.0-18.0); Immature Granulocyte Absolute 0.03 K/mm3 (0.00-0.031); Immature Granulocyte Percent A 0.3 % (0-0.5); Lymphocytes Absolute Auto 1.88 K/mm3 (0.9-3.2); Lymphocytes Percent Auto 18.8 % (18.3-44.2); Mean Corpuscular HGB Conc 32.1 g/dl (32-36); Mean Corpuscular Hemoglobin 26.8 pg (26-34); Mean Corpuscular Volume 83.4 fl (80-100); Mean Platelet Volume 10.3 fl (7.4-10.4); Monocytes Absolute Auto 0.8 K/mm3 (0.1-0.6); Monocytes Percent Auto 7.7 % (2.6-8.5); Neutrophils Absolute Auto 7.2 K/mm3 (1.3-6.7); Neutrophils Percent Auto 71.6 % (45.5-73.1); Platelet Count Result 232 k/mm3 (150-375); Red Cell Distribution Width 15.3 % (11.5-14.5)
[2023-02-22 10:30] LABS: Alanine Aminotransferase 36 U/L (6-50); Albumin Level 4.4 g/dL (3.5-5.1); Alkaline Phosphatase 97 U/L (38-126); Anion Gap 7 mmol/L (8-16); Aspartate Amino Transferase 24 U/L (17-59); Bilirubin,Total 0.4 mg/dL (0.2-1.3); Blood Urea Nitrogen 15 mg/dL (9-20); Carbon Dioxide 29 mmol/L (22-30); Chloride 100 mmol/L (98-107); Estimated CRCL calculation 172 ml/min; Estimated Glomerular Filt Rate > 60; Glucose 117 mg/dL (65-110); Lipase 83 U/L (23-300); Potassium 4.5 mmol/L (3.4-5.0); Sodium 136 mmol/L (137-145)
[2023-02-22 10:40] LABS: Prothrombin Time 13.2 Seconds (11.1-14.7)
[2023-02-22 10:41] LABS: Partial Thromboplastin Time 24.1 SECONDS (22.3-36.8)
[2023-02-22 10:42] LABS: Troponin I < 0.012 ng/mL (0.000-0.034)
[2023-02-22] MEDS: NITROGLYCERIN SL 0.4 MG TABLET SUBLINGUAL (10:45)
[2023-02-22] MEDS: ACETAMINOPHEN 500 MG TABLET 1000 MG PO (10:50)
[2023-02-22 11:08] LABS: NT Pro B Type Natriuretic Pept < 20 pg/mL (19.9-100)
--- NOTE | 2023-02-22 12:37 | PM.IMHP ---
H&P: HPI History of Present Illness Date/Time: 02/22/23 12:37 Chief Complaint: chest pain Narrative: This is a 57-year-old male patient who has a history of hypertension, hyperlipidemia and diabetes. He developed some mid chest pain that radiated between his shoulders today while he was sitting at work. 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 The patient has no prior history of having any cardiac disease. He denied any diaphoresis And it did not radiate down his arm or up into his neck. The pain started around 730 this morning midsternal and had been constant. He does have increased stress at work lately. He has a history of GERD but the he stated this was different from GERD. He reported that he had headache as well. He denied any shortness of breath or any nausea vomiting or abdominal pain. He denies any increase in weight or swelling. No visual changes dizziness or weakness. No fever chills or cough. He was given nitroglycerin and aspirin EN route. His pain is now subsided. EKG is sinus rhythm normal EKG. His H&H is 13.4 and 41.7. D-dimer slightly high at 0.50. Sodium slightly low at 136. Blood sugars 117. Troponins nonreactive x2. Chest x-ray was read as mild interstitial edema atypical pneumonia less favored. He was given nitroglycerin here and Tylenol. The patient is being admitted to observation status on the date of service of 02/22/2023. Review of Systems Review of Systems: All systems reviewed & are unremarkable except as noted in HPI and below Constitutional: Constitutional: Reports as per HPI and Reports no additional constitutional complaints Eyes: Eyes: Reports as per HPI and Reports no additional eye complaints ENT: Reports system reviewed and no additional complaints, except as documented and Reports Normal hearing present Cardiovascular: Cardiovascular: Reports no additional cardiovascular complaints Respiratory: Respiratory: Reports no additional respiratory complaints and Reports no additional respiratory complaints Gastrointestinal: Gastrointestinal: Reports as per HPI and Reports no additional gastrointestinal complaints Musculoskeletal: Musculoskeletal: Reports no additional musculoskeletal complaints Integumentary/Breasts: Skin/Breast: Reports system reviewed and no additional complaints, except as docu and Reports as per HPI Neurologic: Reports system reviewed and no additional complaints, except as documented, Reports as per HPI and Reports Normal hearing present Psychiatric: Psychiatric: Reports no additional psychiatric complaints and Reports as per HPI Endocrine: Endocrine: Reports no additional endocrine complaints Hematologic/Lymphatic: Hematologic/Lymphatic: Reports no additional hematologic/lymphatic complaints Allergic/Immunologic: Allergic/Immunologic: Reports no additional allergic/immunologic complaints PMFSH Past Medical History Medical History Abdominal pain Anxiety Colon cancer screening Depression Diabetes mellitus Edema Encounter for wellness examination GERD (gastroesophageal reflux disease) High cholesterol HTN (hypertension) Hyperlipidemia IBS (irritable bowel syndrome) Irritable bowel syndrome with diarrhea Left lateral epicondylitis Loose stools Morbid obesity with BMI of 45.0-49.9, adult Nausea Obesity Primary hypertension Prostate cancer screening Salivary duct calculi Salivary gland stone Trigeminal neuralgia Surgical History Surgical History H/O carpal tunnel repair H/O colonoscopy History of bilateral carpal tunnel release History of removal of pigmented skin lesion Hx of tonsillectomy S/P cubital tunnel release Family History Family History Grandparent Diabetes mellitus Family history of cardiovascular disease Family history of malignant n
[2023-02-22 13:49] LABS: Troponin I < 0.012 ng/mL (0.000-0.034)
--- NOTE | 2023-02-22 17:00 | PC.NURSE ---
Pt voicing frustrations with how long it is taking to get an admission room as well as to get stress test done. Pt states he is very uncomfortable on the stretcher. RN apologized for the wait, as there are no rooms available at the time. Pt educated on the importance of admission to expedite his stress test and echo. Pt reports he is wanting to eat, and does not want to stay any longer if he is not allowed to eat. RN spoke with ADMISSIONS CLINICIAN Dwayne, since it is 1700 and stress test will not be done today, patient okay to eat a heart healthy diet and will be NPO at midnight. This order was read-back. Pt updated and provided a beverage, pt wanting his to get food for him. Educated on heart healthy diet. RN also got patient a recliner in his room due to discomfort of the stretcher/upon patient request. Awaiting admission.
[2023-02-22 17:06] LABS: Troponin I < 0.012 ng/mL (0.000-0.034)
--- NOTE | 2023-02-22 19:12 | PC.NURSE ---
RN went to check pt's blood sugar, pt reported that he already ate dinner and did not want it checked right now. Pt reports he is compliant with his home regimen. He takes metformin at night, and checks his blood sugar once per day in the morning. Does not want insulin, as his regimen works for him. Pt told RN that he takes all of his meds in the evening. RN verified his home list in his chart. RN called IRMA Rice and informed her of his night time medication routine at this time. States she will be putting in his home medications for this evening. Pt updated, at bedside.
--- NOTE | 2023-02-22 20:34 | ADMGEN ---
This patient, Doron Khalil, was admitted to IMU Room 206-02. Patient/family oriented to hospital policies and general routines including ID bracelet, bed and alarms, visiting hours, pain management, procedures, bathroom and other care routines, personal items, smoking policy, room service/diet, and visiting hours. Information on how to activate the Rapid Response Team has been discussed. Patient/Family are encouraged to report perceived risks to care and to ask questions if they do not understand what they are told or what they should do.
[2023-02-22 20:56] LABS: Glucose Point of Care 137 mg/dl (65-105)
[2023-02-22] MEDS: VALSARTAN 160 MG TABLET PO (22:54)
[2023-02-22] MEDS: OPTI-GEN TAB 1 TABLET PO (22:54)
[2023-02-22] MEDS: metFORMIN HCL XR 500 MG TAB.SR.24H 2000 MG PO (22:54)
[2023-02-22] MEDS: ROSUVASTATIN 10 MG TABLET 40 MG PO (22:55)
[2023-02-22] MEDS: FERROUS SULFATE 324 MG TABLET PO (22:56)
[2023-02-22] MEDS: carBAMazepine 200 MG TABLET 400 MG PO (22:57)
[2023-02-22] MEDS: amLODIPine BESYLATE 5 MG TABLET 10 MG PO (22:57)
[2023-02-22] MEDS: FAMOTIDINE 20 MG/2 ML VIAL IV PUSH (22:58)
[2023-02-22] MEDS: DICYCLOMINE HCL 10 MG CAPSULE PO (22:58)
[2023-02-22] MEDS: traZODone HCL 50 MG TABLET 100 MG PO (22:59)
[2023-02-23] VITALS (8 sets, daily range): BP systolic 117–131; BP diastolic 56–63; PULSE 59–92; RESP 18–22; TEMP 35.8–36.4; O2SAT 93–96
--- NOTE | 2023-02-23 | EST_ITS ---
Patient Info Name: Doron Khalil Age: 57 years : 1965 Gender: Male Ht: 71 in Wt: 314 lbs BSA: 2.74 m2 HR: 77 bpm BP: 134 / 54 mmHg Heart Rhythm: Sinus Rhythm Exam Date: 02/23/2023 10:31 AM Exam Location: [facility] Stress Patient Status: Inpatient Admit Date: 02/22/2023 Staff Ordering Physician: Timo Tinajero Attending Provider: Prince Ramesh MD Exercise Technologist: Jocelyn Cintron CT Nurse: TIMO TINAJERO Exam Type: CA stress test treadmill w NM Study Info Indications R07.89 - Other chest pain A nuclear stress test was performed. Summary 1. Sinus tachycardia/otherwise normal ECG. 2. No ST or T-wave abnormalities noted during exercise. 3. None. 4. Clinically and electrocardiographically negative exercise stress test to 92% of age predicted maximum heart rate. 5. Myocardial perfusion imaging study to be dictated by Radiology. Protocol: [facility] Stress ECG Details Stage: REST Duration (min): 1 min : 6 sec Speed (mph): 0.0 Grade (%): 0 HR (bpm): 75 SBP (mmHg): 134 DBP (mmHg): 54 METS: --- Stage: REST Duration (min): 13 min : 30 sec Speed (mph): 0.0 Grade (%): 0 HR (bpm): 77 SBP (mmHg): 134 DBP (mmHg): 54 METS: --- Stage: STAGE 1 Duration (min): 1 min : 0 sec Speed (mph): 1.7 Grade (%): 10 HR (bpm): 102 SBP (mmHg): 134 DBP (mmHg): 54 METS: --- Stage: STAGE 1 Duration (min): 2 min : 0 sec Speed (mph): 1.7 Grade (%): 10 HR (bpm): 110 SBP (mmHg): 134 DBP (mmHg): 54 METS: --- Stage: STAGE 1 Duration (min): 3 min : 0 sec Speed (mph): 1.7 Grade (%): 10 HR (bpm): 118 SBP (mmHg): 179 DBP (mmHg): 42 METS: --- Stage: STAGE 2 Duration (min): 1 min : 0 sec Speed (mph): 2.5 Grade (%): 12 HR (bpm): 128 SBP (mmHg): 179 DBP (mmHg): 42 METS: --- Stage: STAGE 2 Duration (min): 2 min : 0 sec Speed (mph): 2.5 Grade (%): 12 HR (bpm): 139 SBP (mmHg): 195 DBP (mmHg): 43 METS: --- Stage: STAGE 2 Duration (min): 3 min : 0 sec Speed (mph): 2.5 Grade (%): 12 HR (bpm): 149 SBP (mmHg): 195 DBP (mmHg): 43 METS: --- Stage: STAGE 3 Duration (min): 0 min : 4 sec Speed (mph): 3.4 Grade (%): 14 HR (bpm): 150 SBP (mmHg): 195 DBP (mmHg): 43 METS: --- Stage: RECOVERY Duration (min): 0 min : 55 sec Speed (mph): 0.0 Grade (%): 0 HR (bpm): 132 SBP (mmHg): 210 DBP (mmHg): 67 METS: --- Stage: RECOVERY Duration (min): 1 min : 55 sec Speed (mph): 0.0 Grade (%): 0 HR (bpm): 116 SBP (mmHg): 210 DBP (mmHg): 67 METS: --- Stage: RECOVERY Duration (min): 2 min : 55 sec Speed (mph): 0.0 Grade (%): 0 HR (bpm): 109 SBP (mmHg): 144 DBP (mmHg): 78 METS: --- Stage: RECOVERY Duration (min): 3 min : 55 sec Speed (mph): 0.0 Grade (%): 0 HR (bpm): 104 SBP (mmHg): 144 DBP (mmHg): 78 METS: --- Stage:
[2023-02-23 04:23] LABS: Basophils Absolute Auto 0.1 K/mm3 (0.0-0.1); Basophils Percent Auto 0.6 % (0.2-1.2); Eosinophils Absolute Auto 0.1 K/mm3 (0-0.3); Eosinophils Percent Auto 1.4 % (0-4.4); Hematocrit 40.6 % (42.0-52.0); Hemoglobin 12.7 g/dL (14.0-18.0); Immature Granulocyte Absolute 0.02 K/mm3 (0.00-0.031); Immature Granulocyte Percent A 0.2 % (0-0.5); Lymphocytes Absolute Auto 2.14 K/mm3 (0.9-3.2); Lymphocytes Percent Auto 25.1 % (18.3-44.2); Mean Corpuscular HGB Conc 31.3 g/dl (32-36); Mean Platelet Volume 10.3 fl (7.4-10.4); Monocytes Absolute Auto 0.7 K/mm3 (0.1-0.6); Monocytes Percent Auto 8.2 % (2.6-8.5); Neutrophils Absolute Auto 5.5 K/mm3 (1.3-6.7); Neutrophils Percent Auto 64.5 % (45.5-73.1); Platelet Count Result 240 k/mm3 (150-375); Red Blood Count 4.89 M/mm3 (4.6-6.20); Red Cell Distribution Width 15.2 % (11.5-14.5); White Blood Count 8.5 K/mm3 (4.5-10.0)
[2023-02-23 04:32] LABS: Lactic Acid Reflex 1.3 mmol/L (0.7-2.0)
[2023-02-23 04:34] LABS: Alanine Aminotransferase 34 U/L (6-50); Alkaline Phosphatase 93 U/L (38-126); Anion Gap 7 mmol/L (8-16); Aspartate Amino Transferase 23 U/L (17-59); Bilirubin,Total 0.3 mg/dL (0.2-1.3); Blood Urea Nitrogen 16 mg/dL (9-20); Calcium 8.5 mg/dL (8.4-10.2); Carbon Dioxide 29 mmol/L (22-30); Chloride 102 mmol/L (98-107); Estimated CRCL calculation 146 ml/min; Estimated Glomerular Filt Rate > 60; Glucose 116 mg/dL (65-110); Magnesium 2.1 mg/dL (1.6-2.3); Potassium 4.1 mmol/L (3.4-5.0); Sodium 138 mmol/L (137-145)
[2023-02-23] MEDS: traMADol HCL (*CRX) 50 MG TABLET PO (06:17)
--- NOTE | 2023-02-23 08:42 | PM.CNCAR ---
Assessment and Plan Assessment and plan (1) Chest pain: Qualifiers: Chest pain type: unspecified Qualified Code(s): R07.9 - Chest pain, unspecified Code(s): R07.9 - Chest pain, unspecified Status: Acute Plan This is a 57-year-old man without prior cardiac history but with obvious risk factors he presents with an episode of nitrate responsive chest pain that occurred now about 24 hours ago. His troponin levels are negative for ACS. Still stress testing is reasonable given his risk factors. I am not sure why Lexiscan study has been ordered the patient to appears to be a gentleman who had that would be certainly able to exercise on a treadmill. I will ask the staff to transition the orders to a exercise nuclear stress test. We will follow-up on those results. He does have a soft systolic murmur on exam that is most consistent with some sclerotic changes in his aortic valve by his exam I do not believe the valve is significantly stenotic. Pascual Bustillos MD [facility] History of Present Illness History of Present Illness Consult date/time: 02/23/23 08:42 Reason For Visit: cp,heart score 4 Narrative: This is a 57-year-old man I am seeing at the request of the hospitalist because of chest pain. At this point he came into the emergency room almost 24 hours ago when he was at work it is office in began to notice some substernal chest pain. He says that he has having these episodes as so this was not all that unusual or concerning for him he has been having episodes of intermittent substernal pain that happens off and on in an unpredictable fashion it usually subsides within a couple of minutes. He is not noticing any symptoms that happened to occur when he exerts himself he is not having any GUIDRY orthopnea PND or edema. Yesterday he had this episode and rather than subsiding and a couple of minutes it seemed to persist for more than an hour as result of that he told him coworkers about this he was seen by a physician in the office where he works and was advised to have an ambulance but bring him to the emergency room here for further evaluation. Apparently on route to the hospital he received some nitroglycerin which alleviated his symptoms. His presenting electrocardiogram in the emergency room looked normal and his troponin levels have been normal x3 sets. The hospitalists have seen him and I have ordered a Lexiscan nuclear stress test for further evaluation of this for this morning. An echocardiogram has also apparently been ordered. He does not have any previous cardiac history. His father and grandfather both of heart disease in their 60s. He has a history of hypertension non insulin-dependent diabetes and dyslipidemia. He quit smoking many years ago. He is an active gentleman he does not exercise regularly but he does not have any difficulty carrying on daily activities and going out for a walk for example. Review of Systems Constitutional: Constitutional: Reports no additional constitutional complaints Eyes: Eyes: Reports no additional eye complaints ENT: Reports system reviewed and no additional complaints, except as documented Cardiovascular: Cardiovascular: Reports as per HPI Respiratory: Respiratory: Reports no additional respiratory complaints Gastrointestinal: Gastrointestinal: Reports no additional gastrointestinal complaints Musculoskeletal: Musculoskeletal: Reports back pain Integumentary/Breasts: Skin/Breast: Reports system reviewed and no additional complaints, except as docu Neurologic: Reports system reviewed and no additional complaints, except as documented Endocrine: Endocrine: Reports no additional endocrine complaints Hematologic/Lymphatic: Hematologic/Lymphatic: Reports no additional hematologic/lymphatic complaints Allergic/Immunologic: Allergic/Immunologic: Reports no additional allergic/immunologic complaints [facility] Past Medical History Medical History (Reviewed 02/12
[2023-02-23] MEDS: FAMOTIDINE 20 MG/2 ML VIAL IV PUSH (09:34)
[2023-02-23] MEDS: ENOXAPARIN 40 MG/0.4 ML SYRINGE SUB-Q (09:34)
[2023-02-23 12:07] LABS: Glucose Point of Care 158 mg/dl (65-105)
--- NOTE | 2023-02-23 13:38 | PM.DS ---
DS: Admitting Diagnosis Discharge Date 02/23/2023 Admitting Diagnosis chest pain DS: Discharge Diagnosis Discharge Diagnosis (1) Chest pain: Qualifiers: Chest pain type: unspecified Qualified Code(s): R07.9 - Chest pain, unspecified Code(s): R07.9 - Chest pain, unspecified Status: Acute (2) HLD (hyperlipidemia): Qualifiers: Hyperlipidemia type: unspecified Qualified Code(s): E78.5 - Hyperlipidemia, unspecified Code(s): E78.5 - Hyperlipidemia, unspecified Status: Acute (3) HTN (hypertension): Qualifiers: Hypertension type: unspecified Qualified Code(s): I10 - Essential (primary) hypertension Code(s): I10 - Essential (primary) hypertension Status: Acute DS: Summary Hospital Course Hospital Course: This is a 57-year-old man without prior cardiac history but with obvious risk factors he presents with an episode of nitrate responsive chest pain that occurred now about 24 hours ago.? His troponin levels are negative for ACS.? cardiology was consulted. Patient underwent treadmill stress test. Patient will be discharged home once treadmill stress test is negative Time Spent with Patient Time attestation: Total time spent providing and/or coordinating discharge services: Exam Const: General: cooperative, healthy appearing, comfortable, no acute distress, well developed, alert, awake, Physically active, well nourished and overweight Nutritional Appearance: average body habitus and overweight Orientation/consciousness: oriented to person, oriented to place, oriented to time and patient oriented x3 Limitations: no limitations HENMT: Head: normal to inspection, No palpable skull fracture present, normocephalic and atraumatic Ears: hearing grossly normal bilaterally and external ears normal Face/Nose/Sinus: Normal external nose present and Normal nares present Eyes: General: appearance normal, both eyes and all related structures Alignment and Position: alignment normal Periorbital: periorbital findings normal Eyelids: eyelids normal Sclera: sclerae normal Pupils: Equal, round and reactive pupils present EOM: EOMs intact bilaterally Neck: Neck: normal visual inspection, full ROM, no lymphadenopathy, trachea midline and supple Chest: Chest palpation & inspection: normal inspection of the chest Resp: Effort & Inspection: normal respiratory effort Auscultation: clear to auscultation bilaterally Cardio: Palpation: normal PMI Rate: regular rate Rhythm: regular rhythm Heart sounds: S1 normal heart sound present and S2 normal heart sound present Peripheral pulses: Peripheral pulses 2+ throughout GI: Inspection: normal to inspection Auscultation: normal bowel sounds Rectal Exam: deferred Back/Spine/Pelvis: Cervical Spine: cervical ROM normal Skin: General skin exam: normal color Lesions: no lesions Rashes: no rashes Trauma: no lacerations or abrasions Wounds: no wounds Hair: normal Nails: normal Other: some skin lesions on his back. Neuro: General: oriented to person, oriented to place, oriented to time and patient oriented x3 Cranial nerves: Yes Equal, round and reactive pupils present and Yes Normal hearing present Cognition (Neuro): normal cognition Speech: normal speech Gait exam (Neuro): Normal gait present Motor exam (neuro): 5/5 motor strength present throughout Sensory Exam: normal sensation Extrem: General: normal to inspection Right upper extremity: normal to inspection and shoulder/upper arm Left upper extremity: normal to inspection and shoulder/upper arm Right lower extremity: normal to inspection Left lower extremity: normal to inspection Psych: Appearance: grossly normal Mental Status: mental status grossly normal Speech and movement: Normal speech and movement present Affect: normal affect Attitude: cooperative Thought process: Normal thought process present Thought content: Yes Normal thought content pre
== END 2023-02-23 15:21 | disposition home or self-care (01) ==
LOC: ANHED 12:14 → ANHIMU 20:02
PROVIDERS: Emergency Medicine; Nurse Practitioner; Admitting Provider Family Medicine; Emergency Provider Physician Assistant; PCP Family Medicine; Visit Provider Hospitalist
DX: R07.9 Chest pain, unspecified (principal); E66.01 Morbid (severe) obesity due to excess calories; Z68.42 Body mass index [BMI] 45.0-49.9, adult; E11.9 Type 2 diabetes mellitus without complications; I10 Essential (primary) hypertension; E78.5 Hyperlipidemia, unspecified; R10.9 Unspecified abdominal pain; R00.0 Tachycardia, unspecified; F41.9 Anxiety disorder, unspecified; K76.0 Fatty (change of) liver, not elsewhere classified; K82.8 Other specified diseases of gallbladder; F32.A Depression, unspecified; R01.1 Cardiac murmur, unspecified; R51.9 Headache, unspecified; K21.9 Gastro-esophageal reflux disease without esophagitis; J84.9 Interstitial pulmonary disease, unspecified; K58.0 Irritable bowel syndrome with diarrhea; Z83.3 Family history of diabetes mellitus; Z82.49 Family history of ischemic heart disease and other diseases of the circulatory system; Z87.891 Personal history of nicotine dependence; F12.90 Cannabis use, unspecified, uncomplicated; Z79.84 Long term (current) use of oral hypoglycemic drugs; Z79.51 Long term (current) use of inhaled steroids; Z79.891 Long term (current) use of opiate analgesic; Z79.899 Other long term (current) drug therapy
CPT/HCPCS: 36415; 71045; 76705; 78452; 80053; 82948; 83605; 83690; 83735; 83880; 84443; 84484; 85025; 85380; 85610; 85730; 93005; 93017; 96372; 96374; 99285; A9270; A9502; G0378; J1650

== ENCOUNTER 2023-03-08 16:13 | Outpatient (CLI) | payer OTHER, BC, SELFPAY ==
--- NOTE | ~2023-03-08 | CT_ITS ---
EXAMINATION: CT soft tissue neck wo con DATE: 03/08/2023 16:32 INDICATION: Sore throat for several months. TECHNIQUE: Computed tomography (CT) of the neck was performed without intravenous contrast. Automated exposure control and iterative reconstruction technique were employed. The dose-length product was 6 49.46 mGy-cm. COMPARISON: Neck CT 08/23/2022 FINDINGS: There are no pathologically enlarged lymph nodes. There is a mucous retention cyst right ma xillary sinus. There is a 3 mm sialolith in anterior right floor of mouth. The pharynx and larynx are unremarkable. There is severe cervical spondylosis. IMPRESSION: 1. 3 mm sialolith in anterior right floor of mouth. Reviewed, dictated and finalized at location E.
== END 2023-03-08 16:14 | disposition home or self-care (01) ==
PROVIDERS: PCP Family Medicine; Visit Provider Otolaryngology
DX: J02.9 Acute pharyngitis, unspecified (principal); K11.5 Sialolithiasis
CPT/HCPCS: 70490

== ENCOUNTER 2023-03-18 08:47 | Emergency (ER) | payer OTHER, BC, SELFPAY ==
--- NOTE | 2023-03-18 08:51 | ED.SKABFB ---
HPI - Skin/Abscess/Foreign Bdy General Chief complaint: Skin/Abscess/Foreign Body Stated complaint: Painful sore upper middle of back Time Seen by Provider: 03/18/23 09:26 Source: patient and RN notes reviewed Mode of arrival: ambulatory Limitations: dementia History of Present Illness HPI narrative: 58-year-old male presents with concern for a sore on his back. He reports he has had a raised area there for years, occasionally it swells up and then goes away. Reports over the last couple of days it has become swollen, tender, red, and has had some drainage. He denies fever, aches, chills, sweats. Reports his tried to poke it today nothing came out MD complaint: abscess/boil Related Data Home Medications Medication Instructions Recorded Confirmed bdphtvph-[id number] acid 300 1 tablet PO QHS 07/07/20 03/18/23 mcg-lycopene 600 mcg-lutein 300 mcg tablet (Men 50 Plus Multivitamin) ferrous sulfate 325 mg (65 mg 325 mg PO QHS 10/12/21 03/18/23 iron) tablet (FeroSul) tizanidine 4 mg capsule 8 mg PO QHS PRN Muscle Spasm 04/21/22 03/18/23 amlodipine 10 mg tablet 10 mg PO QHS 02/22/23 03/18/23 carbamazepine 200 mg tablet 400 mg PO QHS 02/22/23 03/18/23 dicyclomine 10 mg capsule 10 mg PO QHS 02/22/23 03/18/23 rosuvastatin 40 mg tablet 40 mg PO QHS 02/22/23 03/18/23 valsartan 160 mg tablet 160 mg PO QHS 02/22/23 03/18/23 cetirizine 10 mg tablet (Zyrtec) 10 mg PO DAILY 03/05/23 03/18/23 fluticasone propionate 50 1 spray intranasal DAILY 03/05/23 03/18/23 mcg/actuation nasal spray,suspension (Flonase Allergy Relief) ipratropium bromide 21 mcg (0.03 2 spray intranasal QPM 03/05/23 03/18/23 %) nasal spray famotidine 20 mg tablet 20 mg PO DAILY 03/18/23 03/18/23 omeprazole 20 mg capsule,delayed 20 mg PO DAILY 06/04/23 06/04/23 release Allergies Allergy/AdvReac Type Severity Reaction Status Date / Time propoxyphene AdvReac Unknown NAUSEA/VOMI Verified 03/18/23 09:10 TING Review of Systems Review of Systems: CONSTITUTIONAL: Denies malaise, chills, sweats, or fever. EYES: Denies redness, or discharge. ENT: Denies rhinorrhea, congestion, swollen lips, swollen tongue CARDIOVASCULAR: Denies chest pain, palpitations, or edema. RESPIRATORY: Denies cough or dyspnea. GASTROINTESTINAL: Denies abdominal pain, nausea, vomiting SKIN: Reports redness, swelling, tenderness, raised area on his back with occasional drainage. Denies vesicles, bullae, numbness, pain beyond proportion MUSCULOSKELETAL: Denies joint pain or myalgia. NEUROLOGIC: Denies headache. All systems reviewed & are unremarkable except as noted in HPI and below PMFSH Past Medical History Medical History Abdominal pain Anxiety Colon cancer screening Depression Diabetes mellitus Edema Encounter for wellness examination GERD (gastroesophageal reflux disease) High cholesterol HTN (hypertension) Hyperlipidemia IBS (irritable bowel syndrome) Irritable bowel syndrome with diarrhea Left lateral epicondylitis Loose stools Morbid obesity with BMI of 45.0-49.9, adult Nausea Obesity Primary hypertension Prostate cancer screening Salivary duct calculi Salivary gland stone Trigeminal neuralgia Surgical History Surgical History H/O carpal tunnel repair H/O colonoscopy History of bilateral carpal tunnel release History of removal of pigmented skin lesion Hx of tonsillectomy S/P cubital tunnel release Family History Family History Grandparent Diabetes mellitus Family history of cardiovascular disease Family history of malignant neoplasm of breast in first degree relative Sibling Diabetes mellitus Mother Family history of malignant neoplasm of brain Social History Social History Social History: He is a
[2023-03-18 08:56] VITALS: BP 145/71; PULSE 71; RESP 16; TEMP 35.8; O2SAT 98
== END 2023-03-18 10:07 | disposition home or self-care (01) ==
PROVIDERS: Emergency Provider Nurse Practitioner; PCP Family Medicine
DX: L02.212 Cutaneous abscess of back [any part, except buttock and flank] (principal); L03.312 Cellulitis of back [any part except buttock and flank]; Z87.891 Personal history of nicotine dependence; E11.9 Type 2 diabetes mellitus without complications; K21.9 Gastro-esophageal reflux disease without esophagitis; E78.00 Pure hypercholesterolemia, unspecified; I10 Essential (primary) hypertension; F41.9 Anxiety disorder, unspecified; F32.A Depression, unspecified
CPT/HCPCS: 10060; 87070; 87075; 87077; 87186; 87205; 99213; G0463

== ENCOUNTER 2023-04-23 09:40 | Outpatient (CLI) | payer OTHER, BC, SELFPAY ==
[2023-04-23 10:08] LABS: Hematocrit 41.1 % (42.0-52.0); Hemoglobin 12.8 g/dL (14.0-18.0); Mean Corpuscular HGB Conc 31.1 g/dl (32-36); Mean Corpuscular Hemoglobin 26.1 pg (26-34); Mean Corpuscular Volume 83.9 fl (80-100); Mean Platelet Volume 10.1 fl (7.4-10.4); Platelet Count Result 228 k/mm3 (150-375); Red Cell Distribution Width 14.6 % (11.5-14.5)
[2023-04-23 10:20] LABS: Alanine Aminotransferase 27 U/L (6-50); Alkaline Phosphatase 82 U/L (38-126); Anion Gap 2 mmol/L (8-16); Aspartate Amino Transferase 20 U/L (17-59); Bilirubin,Total 0.2 mg/dL (0.2-1.3); Blood Urea Nitrogen 16 mg/dL (9-20); Calcium 8.6 mg/dL (8.4-10.2); Carbon Dioxide 31 mmol/L (22-30); Chloride 101 mmol/L (98-107); Cholesterol 192 mg/dL (0-200); Estimated Glomerular Filt Rate > 60; Glucose 106 mg/dL (65-110); HDL Direct 42 mg/dL; Potassium 4.7 mmol/L (3.4-5.0); Sodium 134 mmol/L (137-145); Triglycerides 173 mg/dL (<150)
[2023-04-23 10:30] LABS: LDL Cholesterol Direct 100 mg/dL; Rheumatoid Factor < 12.0 IU/ML (<12)
[2023-04-23 10:41] LABS: Hemoglobin A1C 6.1 % (<5.7)
[2023-04-23 10:43] LABS: Erythrocyte Sedimentation Rate 23 mm/hr (0-20)
== END 2023-04-23 09:41 | disposition home or self-care (01) ==
PROVIDERS: PCP Family Medicine; Visit Provider Physician Assistant
DX: D64.9 Anemia, unspecified (principal); Z13.1 Encounter for screening for diabetes mellitus; E11.9 Type 2 diabetes mellitus without complications; M25.50 Pain in unspecified joint; Z13.220 Encounter for screening for lipoid disorders
CPT/HCPCS: 36415; 80053; 80061; 83036; 85027; 85652; 86430

== ENCOUNTER 2024-05-12 17:07 | Emergency (ER) | payer OTHER, BC, SELFPAY ==
[2024-05-12 17:12] VITALS: BP 192/71; PULSE 103; RESP 20; TEMP 36.6; O2SAT 96
--- NOTE | 2024-05-12 19:06 | ED.ANIMALBIT ---
HPI - Animal Bite General Chief Complaint: Animal Bite Stated Complaint: DOG BITE LEFT FOREARM Time Seen by Provider: 05/12/24 18:57 History of Present Illness HPI narrative: 59-year-old male presents to the emergency department for evaluation for a dog bite to his left forearm. Patient states his personal dogs were fighting over treat and when he attempted to break up a fight the beagle-mix bit his left forearm. Patient is unsure of his tetanus is up-to-date. Related Data Home Medications Medication Instructions Recorded Confirmed [id number] 300 mcg-K 60 1 tablet PO QHS 07/07/20 04/11/24 mcg-lycop 600 mcg-lutein 300 mcg tablet (Men 50 Plus Multivitamin) ferrous sulfate 325 mg (65 mg 325 mg PO QHS 10/12/21 04/11/24 iron) tablet (FeroSul) tizanidine 4 mg capsule 8 mg PO QHS PRN Muscle Spasm 04/21/22 04/11/24 carbamazepine 200 mg tablet 400 mg PO QHS 02/22/23 04/11/24 rosuvastatin 40 mg tablet 40 mg PO QHS 02/22/23 04/11/24 cetirizine 10 mg tablet (Zyrtec) 10 mg PO DAILY 03/05/23 04/11/24 fluticasone propionate 50 1 spray intranasal DAILY 03/05/23 04/11/24 mcg/actuation nasal spray,suspension (Flonase Allergy Relief) famotidine 20 mg tablet 20 mg PO DAILY 03/18/23 04/11/24 omeprazole 20 mg capsule,delayed 20 mg PO DAILY 03/18/23 04/11/24 release antiarthritic combination no.2 900 mg PO BID 03/14/24 04/11/24 mg tablet (glucosamine-chondroitin) vitamins A,C,E-kdeu-ojmplg 4,296 1 cap PO DAILY 03/14/24 04/11/24 mcg-226 mg-90 mg capsule (ICaps AREDS) Allergies Allergy/AdvReac Type Severity Reaction Status Date / Time propoxyphene AdvReac Unknown NAUSEA/VOMI Verified 05/12/24 17:15 TING Review of Systems Review of Systems: All systems reviewed & are unremarkable except as noted in HPI and below PMFSH Past Medical History Medical History Anxiety Depression Diabetes mellitus GERD (gastroesophageal reflux disease) High cholesterol HTN (hypertension) IBS (irritable bowel syndrome) Irritable bowel syndrome with diarrhea Left lateral epicondylitis Morbid obesity with BMI of 45.0-49.9, adult Primary hypertension Salivary gland stone Trigeminal neuralgia Surgical History Surgical History H/O carpal tunnel repair H/O colonoscopy History of bilateral carpal tunnel release History of removal of pigmented skin lesion Hx of tonsillectomy S/P cubital tunnel release Family History Family History Grandparent Diabetes mellitus Family history of cardiovascular disease Family history of malignant neoplasm of breast in first degree relative Sibling Diabetes mellitus Mother Family history of malignant neoplasm of brain Social History Social History Social History: 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 he has no biological children but has 1 adopted son that is his 's Biological child. His esteban is his poa . Code status : code status Smoking packs per day: 2 Smoking cigarettes per day: 40.0 Years smoked: 20 Smoking pack-years: 40.00 Smoking status: Former smoker Tobacco type: cigarettes Second hand tobacco smoke exposure: No Smoking end date: 03/18/18 Alcohol intake: never Substance use: current Substance use type: does not use Other substance usage details: CBD gummies PRN for pain Lack of Transportation: No Lack of Food: Never True Current Housing: I Have Housing Concerned About Future Housing: No Difficulty Paying Gas/Electric Bills: No Difficulty Paying for Meds: No Currently Unemployed: No Education: Bachelor's Degree Difficulty w/ Childcare or Family Care: No Living arrangements: with family Gender identity (if verbalized by the patient): Male Spiritual care concerns: No Agree to blood product
[2024-05-12] MEDS: AMPICILLIN SULB 3 GM/NS 100 ML 3 GM/100 ML VIAL IVPB (19:21)
[2024-05-12] MEDS: HYDROcodone/acetaminophen (*CRX) 5-325 MG TABLET 1 TAB PO (19:21)
[2024-05-12] MEDS: HYDROmorphone HCL INJ (*CRX) 1 MG/ML SYR 0.5 MG IV PUSH (19:22)
[2024-05-12] MEDS: ONDANSETRON INJ 4 MG/2 ML VIAL IV PUSH (19:22)
[2024-05-12] MEDS: TETANUS,DIPHTHERIA,AC PERTUSSIS ADULT (0.5 ML) BOOSTRIX IM (19:22)
[2024-05-12 20:18] VITALS: BP 157/82; PULSE 78; RESP 19; TEMP 36.6; O2SAT 97
== END 2024-05-12 20:21 | disposition home or self-care (01) ==
PROVIDERS: Emergency Provider Emergency Medicine; PCP Family Medicine
DX: S51.852A Open bite of left forearm, initial encounter (principal); Z23 Encounter for immunization; I10 Essential (primary) hypertension; E11.9 Type 2 diabetes mellitus without complications; E78.00 Pure hypercholesterolemia, unspecified; E66.01 Morbid (severe) obesity due to excess calories; Z68.32 Body mass index [BMI] 32.0-32.9, adult; K21.9 Gastro-esophageal reflux disease without esophagitis; K58.9 Irritable bowel syndrome, unspecified; Z87.891 Personal history of nicotine dependence; Z79.899 Other long term (current) drug therapy; Z79.84 Long term (current) use of oral hypoglycemic drugs; W54.0XXA Bitten by dog, initial encounter
CPT/HCPCS: 12002; 90471; 90715; 96365; 96375; 99284; A9270; J0295; J1170; J2405

== ENCOUNTER 2024-05-16 07:37 | Emergency (ER) | payer OTHER, BC, SELFPAY ==
[2024-05-16 07:37] VITALS: BP 179/67; PULSE 98; RESP 18; TEMP 36.4; O2SAT 100
--- NOTE | 2024-05-16 09:04 | ED.ANIMALBIT ---
HPI - Animal Bite General Chief Complaint: Animal Bite Stated Complaint: DOG BITE Time Seen by Provider: 05/16/24 08:55 History of Present Illness HPI narrative: 59 y/o male presents for wound recheck of left forearm. patient states he was bitten by his dog 5 days ago while trying to break his 2 dogs up from fighting. patient noticed some increased redness after taking his dressing off today so came back for re-evaluation. patient denies fevers. patient has follow-up on Sunday with wound clinic. patient denies any other symptoms. Onset (ago): day(s) (5) Animal: dog Mechanism: bite Location: other (left forearm) Related Data Home Medications Medication Instructions Recorded Confirmed rywtkejx-wb-yanyg 300 mcg-K 60 1 tablet PO QHS 07/07/20 04/11/24 mcg-lycop 600 mcg-lutein 300 mcg tablet (Men 50 Plus Multivitamin) ferrous sulfate 325 mg (65 mg 325 mg PO QHS 10/12/21 04/11/24 iron) tablet (FeroSul) tizanidine 4 mg capsule 8 mg PO QHS PRN Muscle Spasm 04/21/22 04/11/24 carbamazepine 200 mg tablet 400 mg PO QHS 02/22/23 04/11/24 rosuvastatin 40 mg tablet 40 mg PO QHS 02/22/23 04/11/24 cetirizine 10 mg tablet (Zyrtec) 10 mg PO DAILY 03/05/23 04/11/24 fluticasone propionate 50 1 spray intranasal DAILY 03/05/23 04/11/24 mcg/actuation nasal spray,suspension (Flonase Allergy Relief) famotidine 20 mg tablet 20 mg PO DAILY 03/18/23 04/11/24 omeprazole 20 mg capsule,delayed 20 mg PO DAILY 03/18/23 04/11/24 release antiarthritic combination no.2 900 mg PO BID 03/14/24 04/11/24 mg tablet (glucosamine-chondroitin) vitamins A,C,K-tpab-ptswvt 4,296 1 cap PO DAILY 03/14/24 04/11/24 mcg-226 mg-90 mg capsule (ICaps AREDS) Allergies Allergy/AdvReac Type Severity Reaction Status Date / Time propoxyphene AdvReac Unknown NAUSEA/VOMI Verified 05/16/24 07:40 TING Review of Systems Constitutional: Constitutional: Reports no additional constitutional complaints Eyes: Eyes: Reports no additional eye complaints ENT: Reports system reviewed and no additional complaints, except as documented Cardiovascular: Cardiovascular: Reports no additional cardiovascular complaints Respiratory: Respiratory: Reports no additional respiratory complaints Gastrointestinal: Gastrointestinal: Reports no additional gastrointestinal complaints Genitourinary: Genitourinary: Reports no additional male genitourinary complaints Musculoskeletal: Musculoskeletal: Reports other (left forearm pain) Integumentary/Breasts: Skin/Breast: Reports wounds Neurologic: Reports system reviewed and no additional complaints, except as documented Psychiatric: Psychiatric: Reports no additional psychiatric complaints Endocrine: Endocrine: Reports no additional endocrine complaints Hematologic/Lymphatic: Hematologic/Lymphatic: Reports no additional hematologic/lymphatic complaints Allergic/Immunologic: Allergic/Immunologic: Reports no additional allergic/immunologic complaints [facility] Past Medical History Medical History Anxiety Depression Diabetes mellitus GERD (gastroesophageal reflux disease) High cholesterol HTN (hypertension) IBS (irritable bowel syndrome) Irritable bowel syndrome with diarrhea Left lateral epicondylitis Morbid obesity with BMI of 45.0-49.9, adult Primary hypertension Salivary gland stone Trigeminal neuralgia Surgical History Surgical History H/O carpal tunnel repair H/O colonoscopy History of bilateral carpal tunnel release History of removal of pigmented skin lesion Hx of tonsillectomy S/P cubital tunnel release Family History Family History Grandparent Diabetes mellitus Family history of cardiovascular disease Family history of malignant neoplasm of breast in first degree relative Sibling Diabetes mellitus Monster
[2024-05-16 09:24] LABS: Basophils Percent Auto 0.5 % (0.2-1.2); Eosinophils Absolute Auto 0.1 K/mm3 (0-0.3); Eosinophils Percent Auto 1.2 % (0-4.4); Hematocrit 41.2 % (42.0-52.0); Hemoglobin 12.9 g/dL (14.0-18.0); Immature Granulocyte Absolute 0.06 K/mm3 (0.00-0.031); Immature Granulocyte Percent A 0.7 % (0-0.5); Lymphocytes Absolute Auto 1.23 K/mm3 (0.9-3.2); Lymphocytes Percent Auto 13.9 % (18.3-44.2); Mean Corpuscular HGB Conc 31.3 g/dl (32-36); Mean Corpuscular Hemoglobin 27.3 pg (26-34); Mean Corpuscular Volume 87.3 fl (80-100); Mean Platelet Volume 10.1 fl (7.4-10.4); Monocytes Absolute Auto 0.6 K/mm3 (0.1-0.6); Neutrophils Absolute Auto 6.8 K/mm3 (1.3-6.7); Neutrophils Percent Auto 76.7 % (45.5-73.1); Platelet Count Result 230 k/mm3 (150-375); Red Blood Count 4.72 M/mm3 (4.6-6.20); Red Cell Distribution Width 14.6 % (11.5-14.5); White Blood Count 8.9 K/mm3 (4.5-10.0)
[2024-05-16 09:33] LABS: Alanine Aminotransferase 30 U/L (6-50); Albumin Level 4.4 g/dL (3.5-5.1); Alkaline Phosphatase 91 U/L (38-126); Anion Gap 8 mmol/L (4-12); Aspartate Amino Transferase 21 U/L (17-59); Bilirubin,Total 0.3 mg/dL (0.2-1.3); Blood Urea Nitrogen 13 mg/dL (9-20); Calcium 8.8 mg/dL (8.4-10.2); Carbon Dioxide 31 mmol/L (22-30); Chloride 98 mmol/L (98-107); Estimated CRCL calculation 166 ml/min; Estimated Glomerular Filt Rate > 60; Glucose 123 mg/dL (65-110); Magnesium 1.9 mg/dL (1.6-2.3); Potassium 4.6 mmol/L (3.4-5.0); Sodium 137 mmol/L (137-145)
[2024-05-16] MEDS: AMPICILLIN SULB 3 GM/NS 100 ML 3 GM/100 ML VIAL IVPB (10:02)
[2024-05-16 10:45] VITALS: BP 142/80; PULSE 86; RESP 16; TEMP 36.6; O2SAT 98
== END 2024-05-16 10:48 | disposition home or self-care (01) ==
PROVIDERS: Emergency Provider Nurse Practitioner Family; PCP Family Medicine
DX: S51.852D Open bite of left forearm, subsequent encounter (principal); I10 Essential (primary) hypertension; E11.9 Type 2 diabetes mellitus without complications; E78.00 Pure hypercholesterolemia, unspecified; E66.01 Morbid (severe) obesity due to excess calories; Z68.41 Body mass index [BMI] 40.0-44.9, adult; K21.9 Gastro-esophageal reflux disease without esophagitis; K58.9 Irritable bowel syndrome, unspecified; F32.A Depression, unspecified; F41.9 Anxiety disorder, unspecified; Z87.891 Personal history of nicotine dependence; Z79.899 Other long term (current) drug therapy; Z79.84 Long term (current) use of oral hypoglycemic drugs; W54.0XXD Bitten by dog, subsequent encounter
CPT/HCPCS: 36415; 80053; 83735; 85025; 96365; 99284; J0295

== ENCOUNTER 2024-12-31 13:08 | Outpatient (CLI) | payer OTHER, BC, SELFPAY ==
--- NOTE | ~2024-12-31 | CT_ITS ---
CT Scan of the Chest without Contrast: Clinical Indication: Lung cancer screening, nicotine dependence Technique: Contiguous sections were acquired throughout the chest without intravenous contrast. Dose reduction technique was used on this scan by utilizing automated exposure control and iterative recon struction technique. The dose-length product (DLP) was 399.90 mGy-cm. Findings: There is no evidence of any significant mediastinal, hilar or axillary lymphadenopathy. Coronary almita ry calcifications are present. There is no evidence of pleural or pericardial effusion. The lungs are clear, aside from several small calcified granulomas. Images through the upper abdomen reveal no abnormalities. Impression: Lung RADS 2: Benign appearance. 12 month follow-up screening CT advised. Reviewed, dictated and finalized at location . Impression: Lung RADS 2: Benign appearance. 12 month follow-up screening CT advised.
== END 2024-12-31 13:09 | disposition home or self-care (01) ==
LOC: MICIMG 13:12
PROVIDERS: PCP Family Medicine; Visit Provider Student in an Organized Health Care Education/Training Program
DX: Z12.2 Encounter for screening for malignant neoplasm of respiratory organs (principal); Z87.891 Personal history of nicotine dependence
CPT/HCPCS: 71271

== ENCOUNTER 2025-05-01 10:29 | Outpatient (CLI) | payer OTHER, BC, SELFPAY ==
--- NOTE | ~2025-05-01 | XR_ITS ---
Lumbosacral Spine: AP and lateral views Clinical History: Pain Findings: The normal lordotic curve is maintained. The vertebral bodies and posterior elements are i ntact. There is moderate degenerative disc narrowing at L4-L5 and L5-S1. There is moderate to advance d facet arthropathy at L4-L5 and L5-S1. The sacroiliac joints are normally outlined. Impression: Moderate degenerative spondylosis of the lower lumbar spine, as detailed above. Reviewed, dictated and finalized at location M. Impression: Moderate degenerative spondylosis of the lower lumbar spine, as detailed above.
--- NOTE | ~2025-05-01 | XR_ITS ---
AP view of the pelvis and AP and lateral views of the right hip Clinical history: Pain Findings: No acute fracture or dislocation is seen. Osseous alignment is anatomic. Bilateral hip join ts demonstrate minimal degenerative change. Soft tissues are unremarkable. Impression: Minimal degenerative change of both hip joints. Reviewed, dictated and finalized at location . Impression: Minimal degenerative change of both hip joints.
== END 2025-05-01 10:30 | disposition home or self-care (01) ==
PROVIDERS: PCP Family Medicine; Visit Provider Student in an Organized Health Care Education/Training Program
DX: M25.551 Pain in right hip (principal); M54.50 Low back pain, unspecified; M43.06 Spondylolysis, lumbar region
CPT/HCPCS: 72100; 73502

== ENCOUNTER 2025-06-05 08:59 | Outpatient (CLI) | payer OTHER, BC, SELFPAY ==
--- NOTE | ~2025-06-05 | US_ITS ---
Ankle Brachial Index with Ultrasound Dopplers and Pulse Volume Recordings Technique: Pressures in the arm and lower extremity were obtained. Additionally, arterial and pulse volume waveforms were obtained bilaterally. Findings: Segmental pressures Right posterior tibial: 157 Right dorsalis pedis: 147 Left posterior tibial: 149 Left dorsalis pedis: 148 There are abnormal, monophasic waveforms bilaterally at the level of the ankle. JENIFER Right 1.34 Left 1.27 TBI Right 0.68 Left 0.61 Impression: Elevated JENIFER bilaterally, likely secondary to patient's diabetes. Monophasic waveforms at the level of the ankle bilaterally suggesting mild to moderate peripheral vascular disease, better detected by TBI than JENIFER. Reviewed, dictated and finalized at location A. Impression: Elevated JENIFER bilaterally, likely secondary to patient's diabetes. Monophasic waveforms at the level of the ankle bilaterally suggesting mild to m oderate peripheral vascular disease, better detected by TBI than JENIFER.
--- OUTSIDE RECORDS SUMMARY | 2025-06-05 09:02 | XMS_ITS | Clinical Summary ---
Author Organization [facility] Address [address] [place] [id number] Care Team Providers Care Composite Bond Technician Name Role Phone Unavailable Primary Care Provider Unavailabl e Social History Tobacco Use Types Packs/Day Years Used Date Smoking Tobacco: Never Assessed Sex and Gender Information Value Date Recorded Sex Assigned at Not on file Legal Sex Male 8:17 PM CDT Gender Identity Not on file Sexual Orientation Not on file Plan of Treatment Health Maintenance Due Date Last Done Comments Colorectal Cancer Screening Colonoscopy (10 Years) 1966 Annual Physical 1969 Hepatitis C 1984 DTaP, Tdap and Td Vaccines ( 1 - Tdap) 1985 Pneumococcal Vaccine: 50+ Ye ars (1 of 1 - PCV) 2016 Zoster Vaccines (1 of 2) 2016 COVID-19 Vaccine ( - 2023-2 5 season) 2024 Meningococcal B Vaccine Aged Out No l onger eligible based on patient's age to complete this topic Meningococcal Vaccine Aged Out No darío true eligible based on patient's age to complete this topic RSV Immunizations Under 20 Months Aged Out No longer eligible based on patient's age to complete this topic [place] [address] [place] [address] [employer]
--- OUTSIDE RECORDS SUMMARY | 2025-06-05 09:02 | XMS_ITS | Patient Health Record ---
Author Organization [facility] Address [address] [place] [address] Care Team Providers Care Hack Driver Name Role Phone TONI CONTRERAS MD Primary Care Provider Betsey Sarkar Unavailable [phone] Allergies Allergen (clinical drug ingredient) Drug/Non Drug Allergy documented on EMR Reaction Allergy Type Onset Date Status Darvocet-N 100 stomach upset Drug Allergy Active Reason For Referral No Information Medications Medication SIG (Take, Route, Frequency, Duration) Notes Start Date End Date Status amLODIPine Besylate 10 MG 1 tablet Orally Once a day for 30 day(s) Active Dicyclomine HCl 10 MG 1 tablet Orally BID Active tiZANidine HCl 4 MG 1-2 tabs Orally at hour of sleep for 30 days Active Rosuvastatin Calcium 40 MG 1 tablet Orally Once a day for 30 day(s) Active Albuterol Sulfate 108 (90 Base) MCG/ACT 1 puff as needed Inhalation every 4 hrs Active Tramadol 50 mg one tab orally every 4-6 hours prn pain Active Iron (Ferrous Sulfate) 325 (65 Fe) MG 1 tablet Orally Once a day for 30 day(s) Active traZODone HCl 50 MG 1 tablet at bedtime as needed Orally Once a day for 30 day(s) Active Tylenol 1 tab Oral for 14 days Active Valsartan 160 MG 1 tablet Orally Once a day for 30 day(s) Active Omeprazole 20 MG 1 capsule 30 minutes before morning meal Orally Once a day for 30 day(s) Active Multivitamin - 1 tablet Orally Once a day for 30 day(s) Active metFORMIN HCl ER 500 MG 1 tablet with evening meal Orally QID Active Bydureon One Injection weekly/Mondays Active carBAMazepine 200 MG 1 tablet Orally Twice a day for 30 day(s) Active Social History Alcohol Screening Question Answer Notes Alcoholic drink in the past year No Points 0 Interpretation Negative Problems Problem Type SNOMED Code ICD Code Onset Dates Problem Status W/U Status Risk Notes Problem Solitary sacroiliitis (686125337) Sacroiliitis, not elsewhere classified (M46.1) Active confirmed Problem Degeneration of lumbosacral intervertebral disc (05515312) Other intervertebral disc degeneration, lumbosacral region (M51.37) Active confirmed Problem Spondylosis without myelopathy or radiculopathy, lumbosacral region (M47.817) Active confirmed Plan Of Treatment No Information Insurance Providers Payer Name Payer Address Payer Phone Subscriber Number Group Number Insured Name Patient Relationship to Insured Coverage Start Date Coverage End Date [employer] [address] [place] [address] [id number] Doron Khalil Self - patient is the insured [employer] [address] [place] [address] [id number] Doron Khalil Self - patient is the insured Medical (General) History Medical History History ICD Code High Blood Pressure High Cholesterol Diabetes Left Trigeminal Neuralgia GERD Osteoarthritis IBS-D Surgical History Surgery Date(Month/Year) Right Parotidectomy (hx Stones) 2018 Fatty Tumor Removal Right Forehead 2009 Bilateral Carpal Tunnel Release 1997 Bilateral Elbow Nerve Release Tonsillectomy childhood Hospitalization History Reason Date(Month/Year) See above surgical history
== END 2025-06-05 09:00 | disposition home or self-care (01) ==
PROVIDERS: PCP Family Medicine; Visit Provider Student in an Organized Health Care Education/Training Program
DX: R09.89 Other specified symptoms and signs involving the circulatory and respiratory systems (principal)
CPT/HCPCS: 93922